=== PATIENT | female | born 1950 | race African-American/Black ===

== ENCOUNTER 2023-01-28 10:45 | Inpatient (IN) | payer OTHER, MEDICAID ==
[2023-01-28 12:07] LABS: Hemoglobin 8.4 g/dL (12.0-15.5); Mean Corpuscular HGB CONC 33.6 g/dL (32.0-36.0); Mean Corpuscular Hemoglobin 34.1 pg (27.0-33.0); Mean Corpuscular Volume 101.6 fl (81.6-98.3); Mean Platelet Volume 10.3 fl (7.4-10.4); Platelet Count 262 10x3/uL (150-450); RBC Distribution Width 18.6 % (11.5-14.5); Red Blood Cell (RBC) Count 2.46 10x6/uL (3.90-5.03); White Blood Cell (WBC) Count 2.5 10x3/uL (3.5-10.5)
[2023-01-28 12:23] LABS: ALT (SGPT) 18 U/L (8-55); AST (SGOT) 43 U/L (5-34); Albumin 2.3 g/dL (3.4-4.8); Alkaline Phosphatase 74 U/L (40-110); Anion Gap 19 mmol/L (10-20); BUN (Urea Nitrogen) 11 mg/dL (9.8-20.1); Bilirubin, Total 0.7 mg/dL (0.2-1.2); Calc. Creatinine Clearance 0 mL/min (70-130); Calcium 7.5 mg/dL (7.8-10.44); Carbon Dioxide 19 mmol/L (23-31); Chloride 106 mmol/L (98-107); Estimated GFR 87; Globulin 4.6 g/dL (2.4-3.5); Glucose 60 mg/dL (83-110); Potassium 3.8 mmol/L (3.5-5.1); Protein, Total 6.9 g/dL (5.8-8.1); Sodium 140 mmol/L (136-145)
[2023-01-28 12:37] LABS: MDiff Complete? YES
[2023-01-28 12:44] LABS: CKMB 6.6 ng/mL (0-6.6)
[2023-01-28] MEDS ORDERED: Aspirin Chewable 81 MG TAB ONE (12:59)
[2023-01-28 13:03] LABS: Bilirubin 1+ (Negative); Blood, Urine 10 (Negative); Clarity Cloudy (Clear); Glucose, Urine (Dipstick) Normal (Negative); Ketone, Urine 50 mg/dL (Negative); Leukocyte 500 (Negative); Nitrite Negative (Negative); Protein, Urine (Dipstick) 30 mg/dl (Neg-Trace)
[2023-01-28 13:06] LABS: Eosinophils 1 % (0-10)
[2023-01-28 13:07] LABS: Lymphocytes 53 % (21-51); Monocytes 6 % (0-10); Neutrophil 40 % (42-75); Platelet Adequacy Comment Appears Adequate
[2023-01-28 13:09] LABS: Anisocytosis SLIGHT = 6-15 cells (100X) (0-5/hpf); Macrocytosis SLIGHT = 6-15 cells (100X) (0-5/hpf)
[2023-01-28 13:14] LABS: CAUTI Indications for Culture Pelvic or flank pain; RBC/HPF None Seen HPF (0-3)
[2023-01-28 13:15] LABS: Bacteria/HPF 4+ HPF (None Seen)
[2023-01-28 13:18] LABS: Urine Culture Reflex Yes Yes
[2023-01-28] MEDS ORDERED: cefTRIAXone (ROCEPHIN) 1 GM VIAL ONE (13:36)
[2023-01-28] MEDS ORDERED: Ondansetron PF 4 MG/2 ML Vial IVP PRN (13:56)
[2023-01-28] MEDS ORDERED: Furosemide 40 MG/4 ML VIAL SLOW IVP SCH (14:15)
[2023-01-28 14:30] LABS: Iron 98 ug/dL (50-170); Iron Binding Capacity, Total 83 mcg/dL (265-497)
[2023-01-28 15:08] LABS: Troponin I 0.389 ng/mL (< 0.028)
[2023-01-28] MEDS ORDERED: Acetaminophen 325 MG TAB ONE (15:41)
[2023-01-28] MEDS: Acetaminophen 325 MG TAB PO PRN (15:43)
[2023-01-28 15:46] VITALS: BMI 48.4
[2023-01-28] MEDS ORDERED: Furosemide 40 MG/4 ML VIAL ONE (15:51)
[2023-01-28 20:30] LABS: Troponin I 0.419 ng/mL (< 0.028)
[2023-01-28] MEDS ORDERED: Heparin 25,000 units/D5W 500 ML IVPB SCH (21:00)
[2023-01-28] MEDS ORDERED: Heparin 10,000 UNITS/ 10 ML VIAL SLOW IVP SCH (21:00)
[2023-01-28 22:06] LABS: Creatinine, Urine 175.07 mg/dL (47-110)
[2023-01-28 22:29] LABS: Platelet Count 233 10x3/uL (150-450)
[2023-01-29 04:31] LABS: Mean Corpuscular Hemoglobin 34.9 pg (27.0-33.0); Mean Corpuscular Volume 102.6 fl (81.6-98.3); Mean Platelet Volume 9.6 fl (7.4-10.4); Platelet Count 222 10x3/uL (150-450); RBC Distribution Width 19.1 % (11.5-14.5); Red Blood Cell (RBC) Count 2.29 10x6/uL (3.90-5.03); White Blood Cell (WBC) Count 2.4 10x3/uL (3.5-10.5)
[2023-01-29 04:48] LABS: ALT (SGPT) 14 U/L (8-55); AST (SGOT) 38 U/L (5-34); Albumin 2.1 g/dL (3.4-4.8); Alkaline Phosphatase 74 U/L (40-110); Anion Gap 17 mmol/L (10-20); BUN (Urea Nitrogen) 11 mg/dL (9.8-20.1); Bilirubin, Total 0.5 mg/dL (0.2-1.2); Calc. Creatinine Clearance 146 mL/min (70-130); Calcium 7.4 mg/dL (7.8-10.44); Carbon Dioxide 20 mmol/L (23-31); Chloride 104 mmol/L (98-107); Estimated GFR 85; Globulin 4.4 g/dL (2.4-3.5); Glucose 69 mg/dL (83-110); Potassium 2.9 mmol/L (3.5-5.1); Protein, Total 6.5 g/dL (5.8-8.1); Sodium 138 mmol/L (136-145)
[2023-01-29 05:05] LABS: MDiff Complete? YES
[2023-01-29 05:10] LABS: Eosinophils 2 % (0-10); Lymphocytes 55 % (21-51); Monocytes 8 % (0-10); Neutrophil 35 % (42-75)
[2023-01-29 05:11] LABS: Platelet Adequacy Comment Appears Adequate; RBC Morph Comment Within Normal Limits
[2023-01-29] MEDS: Furosemide 40 MG/4 ML VIAL SLOW IVP SCH ×2 (07:15→16:24)
[2023-01-29] MEDS: Potassium Chloride 20 MEQ in Premix Bag 1 BAG IVPB SCH ×2 (08:40→12:13)
[2023-01-29 08:58] LABS: Thyroid Stimulating Hormone 7.8996 uIU/mL (0.35-4.94)
[2023-01-29 09:27] LABS: Free T4 (Free Thyroxine) 0.82 ng/dL (0.70-1.48)
[2023-01-29 13:00] LABS: Magnesium 1.3 mg/dL (1.6-2.6)
[2023-01-29] MEDS ORDERED: Carvedilol 6.25 MG TAB PO SCH (13:00)
[2023-01-29] MEDS ORDERED: cefTRIAXone\\ROCEPHIN 2 GM in Sodium Chloride 0.9% 100 ML IVPB SCH (14:00)
[2023-01-29] MEDS: Carvedilol 6.25 MG TAB PO SCH (16:24)
[2023-01-29] MEDS ORDERED: Magnesium 2 GM/50 ML(in water) 2 GM in Premix Bag 1 BAG IVPB SCH ×2 (21:30→23:00)
[2023-01-30] MEDS: Furosemide 40 MG/4 ML VIAL SLOW IVP SCH ×2 (05:34→15:25)
[2023-01-30 06:48] LABS: #Monocytes 0.2 10x3/uL (0.0-1.1); #Neutrophils 0.7 10x3/uL (1.5-8.4); %Eosinophils 1.5 % (0.0-6.0); %Lymphocytes 56.4 % (18.0-47.0); %Monocytes 7.8 % (0.0-10.0); %Neutrophils 33.8 % (40.0-75.0); Hemoglobin 7.7 g/dL (12.0-15.5); Mean Corpuscular Hemoglobin 33.8 pg (27.0-33.0); Mean Corpuscular Volume 102.2 fl (81.6-98.3); Mean Platelet Volume 9.3 fl (7.4-10.4); Platelet Count 188 10x3/uL (150-450); RBC Distribution Width 18.7 % (11.5-14.5); Red Blood Cell (RBC) Count 2.28 10x6/uL (3.90-5.03)
[2023-01-30 07:02] LABS: Anion Gap 14 mmol/L (10-20); BUN (Urea Nitrogen) 12 mg/dL (9.8-20.1); Calc. Creatinine Clearance 140 mL/min (70-130); Calcium 7.5 mg/dL (7.8-10.44); Carbon Dioxide 24 mmol/L (23-31); Chloride 105 mmol/L (98-107); Estimated GFR 81; Glucose 93 mg/dL (83-110); Potassium 3.4 mmol/L (3.5-5.1); Sodium 140 mmol/L (136-145)
[2023-01-30] MEDS ORDERED: Potassium Chloride 20 MEQ TAB PO SCH (09:15)
[2023-01-30] MEDS: Carvedilol 6.25 MG TAB PO SCH ×2 (09:41→17:30)
[2023-01-30 11:07] LABS: Magnesium 1.7 mg/dL (1.6-2.6)
[2023-01-30 11:52] LABS: Troponin I 0.298 ng/mL (< 0.028)
[2023-01-30] MEDS: Magnesium 2 GM/50 ML(in water) 2 GM in Premix Bag 1 BAG IVPB SCH ×2 (12:00→13:00)
[2023-01-30] MEDS ORDERED: Meropenem 1 GM in Sodium Chloride 0.9% 100 ML IVPB SCH ×2 (13:00→14:00)
[2023-01-30] MEDS: Acetaminophen 325 MG TAB PO PRN (20:34)
[2023-01-30] MEDS: Meropenem 1 GM in Sodium Chloride 0.9% 100 ML IVPB SCH (20:35)
[2023-01-30 21:02] LABS: Hemoglobin 8.3 g/dL (12.0-15.5); Platelet Count 241 10x3/uL (150-450)
[2023-01-31 00:34] LABS: Protein, Urine Less than 10 mg/dL (1-14)
[2023-01-31 01:00] LABS: Urine Total Volume 2300 mL (250-2400)
[2023-01-31] MEDS: Meropenem 1 GM in Sodium Chloride 0.9% 100 ML IVPB SCH ×3 (04:49→21:48)
[2023-01-31] MEDS: Furosemide 40 MG/4 ML VIAL SLOW IVP SCH ×2 (06:01→13:03)
[2023-01-31 08:00] LABS: Anion Gap 18 mmol/L (10-20); BUN (Urea Nitrogen) 14 mg/dL (9.8-20.1); Calc. Creatinine Clearance 138 mL/min (70-130); Calcium 7.8 mg/dL (7.8-10.44); Carbon Dioxide 20 mmol/L (23-31); Chloride 104 mmol/L (98-107); Estimated GFR 79; Glucose 84 mg/dL (83-110); Potassium 3.2 mmol/L (3.5-5.1); Sodium 139 mmol/L (136-145)
[2023-01-31 08:01] LABS: Hemoglobin 8.4 g/dL (12.0-15.5); MDiff Complete? YES; Mean Corpuscular HGB CONC 34.1 g/dL (32.0-36.0); Mean Corpuscular Hemoglobin 33.9 pg (27.0-33.0); Mean Corpuscular Volume 99.2 fl (81.6-98.3); Platelet Count 232 10x3/uL (150-450); RBC Distribution Width 18.7 % (11.5-14.5); Red Blood Cell (RBC) Count 2.48 10x6/uL (3.90-5.03); White Blood Cell (WBC) Count 2.5 10x3/uL (3.5-10.5)
[2023-01-31 08:03] LABS: CRP (Inflammatory) 5.64 mg/dL (= or < 0.5); Magnesium 1.9 mg/dL (1.6-2.6)
[2023-01-31 08:27] LABS: Phosphorus 2.1 mg/dL (2.3-4.7)
[2023-01-31] MEDS: Carvedilol 6.25 MG TAB PO SCH ×2 (08:45→17:00)
[2023-01-31] MEDS ORDERED: PHOS-NAK 1 PKT PACK PO SCH (08:45)
[2023-01-31] MEDS ORDERED: Potassium Chloride 20 MEQ TAB PO SCH (08:45)
[2023-01-31 09:00] LABS: Eosinophils 1 % (0-10)
[2023-01-31 09:01] LABS: Lymphocytes 47 % (21-51)
[2023-01-31 09:02] LABS: Band 2 % (5-11); Monocytes 5 % (0-10); Neutrophil 45 % (42-75)
[2023-01-31 09:03] LABS: Platelet Adequacy Comment Appears Adequate
[2023-01-31 09:04] LABS: Target Cells SLIGHT = 2-5 cells (100X) (0-1/hpf)
[2023-02-01] MEDS: Meropenem 1 GM in Sodium Chloride 0.9% 100 ML IVPB SCH ×3 (06:06→20:46)
[2023-02-01 07:37] LABS: Mean Corpuscular HGB CONC 33.9 g/dL (32.0-36.0); Mean Corpuscular Hemoglobin 34.2 pg (27.0-33.0); Mean Corpuscular Volume 100.9 fl (81.6-98.3); Mean Platelet Volume 10.2 fl (7.4-10.4); Platelet Count 213 10x3/uL (150-450); RBC Distribution Width 19.4 % (11.5-14.5); Red Blood Cell (RBC) Count 2.34 10x6/uL (3.90-5.03); White Blood Cell (WBC) Count 2.2 10x3/uL (3.5-10.5)
[2023-02-01 07:55] LABS: Anion Gap 12 mmol/L (10-20); BUN (Urea Nitrogen) 15 mg/dL (9.8-20.1); Calc. Creatinine Clearance 133 mL/min (70-130); Calcium 7.6 mg/dL (7.8-10.44); Carbon Dioxide 26 mmol/L (23-31); Chloride 104 mmol/L (98-107); Estimated GFR 76; Glucose 80 mg/dL (83-110); Potassium 3.9 mmol/L (3.5-5.1); Sodium 138 mmol/L (136-145)
[2023-02-01] MEDS: Carvedilol 6.25 MG TAB PO SCH ×2 (08:07→17:59)
[2023-02-01] MEDS: Furosemide 40 MG TAB PO SCH (08:08)
[2023-02-01 08:57] LABS: MDiff Complete? YES
[2023-02-01 09:02] LABS: Eosinophils 2 % (0-10); Monocytes 3 % (0-10); Reactive Lymphocytes 1 % (0-10)
[2023-02-01 09:14] LABS: Lymphocytes 54 % (21-51); Neutrophil 40 % (42-75)
[2023-02-01 09:15] LABS: Macrocytosis SLIGHT = 6-15 cells (100X) (0-5/hpf)
[2023-02-01 09:16] LABS: Platelet Adequacy Comment Appears Adequate
[2023-02-02] MEDS: Meropenem 1 GM in Sodium Chloride 0.9% 100 ML IVPB SCH ×3 (05:35→20:59)
[2023-02-02] MEDS: Carvedilol 6.25 MG TAB PO SCH ×2 (08:28→18:18)
[2023-02-02] MEDS: Furosemide 40 MG TAB PO SCH (08:28)
[2023-02-02 16:15] LABS: Magnesium 1.6 mg/dL (1.6-2.6); Phosphorus 3.6 mg/dL (2.3-4.7)
[2023-02-03 03:21] LABS: Hemoglobin 8.4 g/dL (12.0-15.5); Mean Corpuscular HGB CONC 33.9 g/dL (32.0-36.0); Mean Corpuscular Hemoglobin 34.3 pg (27.0-33.0); Mean Corpuscular Volume 101.2 fl (81.6-98.3); Mean Platelet Volume 10.1 fl (7.4-10.4); Platelet Count 185 10x3/uL (150-450); RBC Distribution Width 18.6 % (11.5-14.5); Red Blood Cell (RBC) Count 2.45 10x6/uL (3.90-5.03); White Blood Cell (WBC) Count 2.4 10x3/uL (3.5-10.5)
[2023-02-03 03:23] LABS: MDiff Complete? YES
[2023-02-03 03:43] LABS: Anion Gap 15 mmol/L (10-20); BUN (Urea Nitrogen) 20 mg/dL (9.8-20.1); Calc. Creatinine Clearance 142 mL/min (70-130); Carbon Dioxide 24 mmol/L (23-31); Chloride 101 mmol/L (98-107); Estimated GFR 82; Glucose 80 mg/dL (83-110); Potassium 3.3 mmol/L (3.5-5.1); Sodium 137 mmol/L (136-145)
[2023-02-03 04:26] LABS: Macrocytosis SLIGHT = 6-15 cells (100X) (0-5/hpf); Platelet Adequacy Comment Appears Adequate
[2023-02-03 04:29] LABS: Band 3 % (5-11); Eosinophils 1 % (0-10); Lymphocytes 55 % (21-51); Monocytes 7 % (0-10); Neutrophil 34 % (42-75)
[2023-02-03] MEDS ORDERED: Meropenem 1,000 MG in Sodium Chloride 0.9% 100 ML IVPB SCH (05:00)
[2023-02-03] MEDS: Furosemide 40 MG TAB PO SCH (08:18)
[2023-02-03] MEDS: Carvedilol 6.25 MG TAB PO SCH ×2 (08:18→17:16)
[2023-02-03] MEDS ORDERED: Potassium Chloride 20 MEQ TAB PO SCH (09:00)
[2023-02-03] MEDS: Meropenem 1 GM in Sodium Chloride 0.9% 100 ML IVPB SCH ×2 (14:55→20:47)
[2023-02-04 03:40] LABS: Hemoglobin 7.4 g/dL (12.0-15.5); Mean Corpuscular HGB CONC 34.1 g/dL (32.0-36.0); Mean Corpuscular Hemoglobin 34.4 pg (27.0-33.0); Mean Corpuscular Volume 100.9 fl (81.6-98.3); Mean Platelet Volume 10.1 fl (7.4-10.4); Platelet Count 158 10x3/uL (150-450); Red Blood Cell (RBC) Count 2.15 10x6/uL (3.90-5.03); White Blood Cell (WBC) Count 2.4 10x3/uL (3.5-10.5)
[2023-02-04 03:43] LABS: MDiff Complete? YES
[2023-02-04 03:47] LABS: Anion Gap 12 mmol/L (10-20); BUN (Urea Nitrogen) 24 mg/dL (9.8-20.1); Calc. Creatinine Clearance 152 mL/min (70-130); Calcium 7.8 mg/dL (7.8-10.44); Carbon Dioxide 26 mmol/L (23-31); Chloride 103 mmol/L (98-107); Estimated GFR 89; Glucose 90 mg/dL (83-110); Potassium 3.1 mmol/L (3.5-5.1); Sodium 138 mmol/L (136-145)
[2023-02-04 04:38] LABS: Macrocytosis SLIGHT = 6-15 cells (100X) (0-5/hpf); Platelet Adequacy Comment Appears Adequate
[2023-02-04 04:41] LABS: Band 2 % (5-11); Eosinophils 1 % (0-10); Lymphocytes 55 % (21-51); Monocytes 6 % (0-10); Neutrophil 36 % (42-75)
[2023-02-04] MEDS: Meropenem 1 GM in Sodium Chloride 0.9% 100 ML IVPB SCH ×3 (05:11→21:28)
[2023-02-04] MEDS: Carvedilol 6.25 MG TAB PO SCH ×2 (09:42→16:52)
[2023-02-04] MEDS: Furosemide 40 MG TAB PO SCH (09:42)
[2023-02-04] MEDS ORDERED: Potassium Chloride 20 MEQ TAB PO SCH ×2 (14:00→21:00)
[2023-02-05 04:09] LABS: Hemoglobin 7.6 g/dL (12.0-15.5); Mean Corpuscular HGB CONC 32.8 g/dL (32.0-36.0); Mean Corpuscular Hemoglobin 34.4 pg (27.0-33.0); Mean Platelet Volume 10.8 fl (7.4-10.4); Platelet Count 168 10x3/uL (150-450); RBC Distribution Width 19.6 % (11.5-14.5); Red Blood Cell (RBC) Count 2.21 10x6/uL (3.90-5.03); White Blood Cell (WBC) Count 3.6 10x3/uL (3.5-10.5)
[2023-02-05 04:12] LABS: MDiff Complete? YES
[2023-02-05 04:21] LABS: Anion Gap 20 mmol/L (10-20); BUN (Urea Nitrogen) 26 mg/dL (9.8-20.1); Calc. Creatinine Clearance 152 mL/min (70-130); Carbon Dioxide 19 mmol/L (23-31); Chloride 103 mmol/L (98-107); Estimated GFR 89; Glucose 69 mg/dL (83-110); Potassium 4.6 mmol/L (3.5-5.1); Sodium 137 mmol/L (136-145)
[2023-02-05 04:38] LABS: Platelet Adequacy Comment Appears Adequate
[2023-02-05 04:40] LABS: Hypochromia SLIGHT = 6-15 cells (100X) (0-5/hpf); Macrocytosis SLIGHT = 6-15 cells (100X) (0-5/hpf)
[2023-02-05 04:42] LABS: Band 2 % (5-11); Lymphocytes 52 % (21-51); Monocytes 11 % (0-10); Neutrophil 35 % (42-75)
[2023-02-05] MEDS: Meropenem 1 GM in Sodium Chloride 0.9% 100 ML IVPB SCH ×3 (06:12→21:00)
[2023-02-05] MEDS: Furosemide 40 MG TAB PO SCH (08:22)
[2023-02-05] MEDS: Carvedilol 6.25 MG TAB PO SCH ×2 (08:22→21:02)
[2023-02-05] MEDS ORDERED: Dextrose 50% Abboject 50 ML SYRINGE SLOW IVP SCH (09:07)
[2023-02-05 10:15] LABS: Iron 111 ug/dL (50-170); Iron Binding Capacity, Total 125 mcg/dL (265-497)
[2023-02-06] MEDS: Meropenem 1 GM in Sodium Chloride 0.9% 100 ML IVPB SCH ×3 (05:13→21:59)
[2023-02-06 05:27] LABS: Hemoglobin 8.1 g/dL (12.0-15.5); Mean Corpuscular HGB CONC 32.5 g/dL (32.0-36.0); Mean Corpuscular Volume 104.6 fl (81.6-98.3); Mean Platelet Volume 10.9 fl (7.4-10.4); Platelet Count 151 10x3/uL (150-450); RBC Distribution Width 19.6 % (11.5-14.5); Red Blood Cell (RBC) Count 2.38 10x6/uL (3.90-5.03); White Blood Cell (WBC) Count 3.1 10x3/uL (3.5-10.5)
[2023-02-06 05:38] LABS: Anion Gap 15 mmol/L (10-20); BUN (Urea Nitrogen) 26 mg/dL (9.8-20.1); Calc. Creatinine Clearance 163 mL/min (70-130); Calcium 8.2 mg/dL (7.8-10.44); Carbon Dioxide 23 mmol/L (23-31); Chloride 104 mmol/L (98-107); Estimated GFR 93; Glucose 76 mg/dL (83-110); Sodium 139 mmol/L (136-145)
[2023-02-06 06:02] LABS: MDiff Complete? YES
[2023-02-06 06:04] LABS: Hypochromia SLIGHT = 6-15 cells (100X) (0-5/hpf); Macrocytosis SLIGHT = 6-15 cells (100X) (0-5/hpf); Platelet Adequacy Comment Appears Adequate
[2023-02-06 06:06] LABS: Band 5 % (5-11); Eosinophils 2 % (0-10); Lymphocytes 54 % (21-51); Monocytes 11 % (0-10); Neutrophil 28 % (42-75)
[2023-02-06] MEDS: Carvedilol 6.25 MG TAB PO SCH ×2 (08:37→18:05)
[2023-02-06] MEDS: Furosemide 40 MG TAB PO SCH (08:38)
[2023-02-06] MEDS ORDERED: Magnesium 2 GM/50 ML(in water) 2 GM in Premix Bag 1 BAG IVPB SCH ×2 (09:00→13:30)
[2023-02-06 13:46] LABS: Magnesium 1.7 mg/dL (1.6-2.6)
[2023-02-06] MEDS: Potassium Chloride 20 MEQ TAB PO SCH ×4 (13:51→22:02)
[2023-02-07 04:33] LABS: Hemoglobin 7.4 g/dL (12.0-15.5); Mean Corpuscular Hemoglobin 33.3 pg (27.0-33.0); Mean Corpuscular Volume 100.9 fl (81.6-98.3); Mean Platelet Volume 10.8 fl (7.4-10.4); Platelet Count 156 10x3/uL (150-450); RBC Distribution Width 18.9 % (11.5-14.5); Red Blood Cell (RBC) Count 2.22 10x6/uL (3.90-5.03); White Blood Cell (WBC) Count 3.5 10x3/uL (3.5-10.5)
[2023-02-07 04:34] LABS: MDiff Complete? YES
[2023-02-07 04:42] LABS: Anion Gap 17 mmol/L (10-20); BUN (Urea Nitrogen) 24 mg/dL (9.8-20.1); Calc. Creatinine Clearance 166 mL/min (70-130); Calcium 8.1 mg/dL (7.8-10.44); Carbon Dioxide 21 mmol/L (23-31); Chloride 105 mmol/L (98-107); Estimated GFR 93; Glucose 82 mg/dL (83-110); Potassium 3.9 mmol/L (3.5-5.1); Sodium 139 mmol/L (136-145)
[2023-02-07] MEDS: Meropenem 1 GM in Sodium Chloride 0.9% 100 ML IVPB SCH ×3 (04:57→20:14)
[2023-02-07 06:28] LABS: Band 1 % (5-11); Eosinophils 2 % (0-10); Lymphocytes 46 % (21-51); Monocytes 16 % (0-10); Neutrophil 35 % (42-75)
[2023-02-07 06:32] LABS: Hypochromia SLIGHT = 6-15 cells (100X) (0-5/hpf); Macrocytosis SLIGHT = 6-15 cells (100X) (0-5/hpf); Platelet Adequacy Comment Appears Adequate; Schistocytes SLIGHT = 2-5 cells (100X) (0-1/hpf)
[2023-02-07] MEDS: Furosemide 40 MG TAB PO SCH (08:19)
[2023-02-07] MEDS: Carvedilol 6.25 MG TAB PO SCH ×2 (08:19→17:22)
[2023-02-08 04:02] LABS: Hemoglobin 6.9 g/dL (12.0-15.5); Mean Corpuscular HGB CONC 33.2 g/dL (32.0-36.0); Mean Corpuscular Hemoglobin 33.7 pg (27.0-33.0); Mean Corpuscular Volume 101.5 fl (81.6-98.3); Mean Platelet Volume 11.6 fl (7.4-10.4); Platelet Count 161 10x3/uL (150-450); RBC Distribution Width 19.5 % (11.5-14.5); Red Blood Cell (RBC) Count 2.05 10x6/uL (3.90-5.03); White Blood Cell (WBC) Count 3.3 10x3/uL (3.5-10.5)
[2023-02-08 04:10] LABS: MDiff Complete? YES
[2023-02-08] MEDS: Meropenem 1 GM in Sodium Chloride 0.9% 100 ML IVPB SCH ×3 (04:40→20:55)
[2023-02-08 05:41] LABS: Eosinophils 1 % (0-10); Lymphocytes 38 % (21-51); Monocytes 18 % (0-10); Neutrophil 41 % (42-75); Reactive Lymphocytes 2 % (0-10)
[2023-02-08 05:43] LABS: Anisocytosis SLIGHT = 6-15 cells (100X) (0-5/hpf); Hypochromia SLIGHT = 6-15 cells (100X) (0-5/hpf); Macrocytosis SLIGHT = 6-15 cells (100X) (0-5/hpf); Microcytosis SLIGHT = 6-15 cells (100X) (0-5/hpf)
[2023-02-08 05:44] LABS: Platelet Adequacy Comment Appears Decreased; Schistocytes SLIGHT = 2-5 cells (100X) (0-1/hpf)
[2023-02-08 06:04] LABS: Anion Gap 15 mmol/L (10-20); BUN (Urea Nitrogen) 23 mg/dL (9.8-20.1); Calc. Creatinine Clearance 150 mL/min (70-130); Calcium 7.9 mg/dL (7.8-10.44); Carbon Dioxide 21 mmol/L (23-31); Chloride 104 mmol/L (98-107); Estimated GFR 87; Glucose 77 mg/dL (83-110); Potassium 3.4 mmol/L (3.5-5.1); Sodium 137 mmol/L (136-145)
[2023-02-08] MEDS: Carvedilol 6.25 MG TAB PO SCH ×2 (08:41→17:09)
[2023-02-08] MEDS: Furosemide 40 MG TAB PO SCH (08:42)
[2023-02-08] MEDS ORDERED: Potassium Chloride 20 MEQ TAB PO SCH (09:00)
[2023-02-08 14:41] LABS: Anion Gap 14 mmol/L (10-20); BUN (Urea Nitrogen) 23 mg/dL (9.8-20.1); Calc. Creatinine Clearance 158 mL/min (70-130); Calcium 7.9 mg/dL (7.8-10.44); Carbon Dioxide 24 mmol/L (23-31); Chloride 103 mmol/L (98-107); Estimated GFR 92; Glucose 103 mg/dL (83-110); Magnesium 1.8 mg/dL (1.6-2.6); Potassium 3.9 mmol/L (3.5-5.1); Sodium 137 mmol/L (136-145)
[2023-02-08 15:14] LABS: Hemoglobin 8.1 g/dL (12.0-15.5); Mean Corpuscular HGB CONC 33.2 g/dL (32.0-36.0); Mean Corpuscular Hemoglobin 33.1 pg (27.0-33.0); Mean Corpuscular Volume 99.6 fl (81.6-98.3); Mean Platelet Volume 11.6 fl (7.4-10.4); Platelet Count 167 10x3/uL (150-450); RBC Distribution Width 20.7 % (11.5-14.5); Red Blood Cell (RBC) Count 2.45 10x6/uL (3.90-5.03); White Blood Cell (WBC) Count 3.4 10x3/uL (3.5-10.5)
[2023-02-08] MEDS ORDERED: Magnesium Sulfate/D5W 1 GM/100 ML BAG IVPB SCH (15:30)
[2023-02-08 15:56] LABS: Band 2 % (5-11); Eosinophils 1 % (0-10); Lymphocytes 33 % (21-51); Monocytes 17 % (0-10); Neutrophil 42 % (42-75); Reactive Lymphocytes 5 % (0-10)
[2023-02-08 15:58] LABS: Anisocytosis SLIGHT = 6-15 cells (100X) (0-5/hpf); Hypochromia SLIGHT = 6-15 cells (100X) (0-5/hpf); Macrocytosis SLIGHT = 6-15 cells (100X) (0-5/hpf)
[2023-02-08 15:59] LABS: Large Platelets SLIGHT (None Seen); Platelet Adequacy Comment Platelets Normal
[2023-02-08 16:00] LABS: MDiff Complete? YES
[2023-02-08] MEDS ORDERED: Magnesium 2 GM/50 ML(in water) 2 GM in Premix Bag 1 BAG IVPB SCH (16:00)
[2023-02-09] MEDS: Meropenem 1 GM in Sodium Chloride 0.9% 100 ML IVPB SCH ×3 (05:21→21:13)
[2023-02-09 06:44] LABS: Anion Gap 14 mmol/L (10-20); BUN (Urea Nitrogen) 20 mg/dL (9.8-20.1); Calc. Creatinine Clearance 173 mL/min (70-130); Calcium 8.2 mg/dL (7.8-10.44); Carbon Dioxide 23 mmol/L (23-31); Chloride 105 mmol/L (98-107); Estimated GFR 94; Glucose 75 mg/dL (83-110); Magnesium 2.1 mg/dL (1.6-2.6); Potassium 3.7 mmol/L (3.5-5.1); Sodium 138 mmol/L (136-145)
[2023-02-09 07:01] LABS: Hemoglobin 8.6 g/dL (12.0-15.5); Mean Corpuscular HGB CONC 32.5 g/dL (32.0-36.0); Mean Corpuscular Hemoglobin 32.6 pg (27.0-33.0); Mean Corpuscular Volume 100.4 fl (81.6-98.3); Platelet Count 146 10x3/uL (150-450); RBC Distribution Width 21.5 % (11.5-14.5); Red Blood Cell (RBC) Count 2.64 10x6/uL (3.90-5.03)
[2023-02-09 07:21] LABS: MDiff Complete? YES
[2023-02-09 08:28] LABS: Eosinophils 2 % (0-10); Lymphocytes 58 % (21-51); Monocytes 14 % (0-10); Neutrophil 26 % (42-75)
[2023-02-09 08:29] LABS: Platelet Adequacy Comment Appears Adequate; RBC Morph Comment Within Normal Limits
[2023-02-09] MEDS: Furosemide 40 MG TAB PO SCH (08:43)
[2023-02-09] MEDS: Carvedilol 6.25 MG TAB PO SCH ×2 (08:43→17:27)
[2023-02-10 07:38] LABS: Anion Gap 16 mmol/L (10-20); BUN (Urea Nitrogen) 19 mg/dL (9.8-20.1); Calc. Creatinine Clearance 182 mL/min (70-130); Carbon Dioxide 20 mmol/L (23-31); Chloride 107 mmol/L (98-107); Sodium 139 mmol/L (136-145)
[2023-02-10 07:39] LABS: Calcium 7.7 mg/dL (7.8-10.44); Estimated GFR 95; Glucose 79 mg/dL (83-110)
[2023-02-10 08:26] LABS: Hemoglobin 7.5 g/dL (12.0-15.5); Mean Corpuscular HGB CONC 34.1 g/dL (32.0-36.0); Mean Corpuscular Hemoglobin 33.6 pg (27.0-33.0); Mean Corpuscular Volume 98.7 fl (81.6-98.3); Mean Platelet Volume 11.9 fl (7.4-10.4); RBC Distribution Width 20.4 % (11.5-14.5); Red Blood Cell (RBC) Count 2.23 10x6/uL (3.90-5.03); White Blood Cell (WBC) Count 3.4 10x3/uL (3.5-10.5)
[2023-02-10 08:28] LABS: MDiff Complete? YES
[2023-02-10 08:29] LABS: Platelet Count 158 10x3/uL (150-450)
[2023-02-10 09:18] LABS: Lymphocytes 59 % (21-51); Monocytes 12 % (0-10); Neutrophil 29 % (42-75)
[2023-02-10 09:22] LABS: Anisocytosis SLIGHT = 6-15 cells (100X) (0-5/hpf); Hypochromia SLIGHT = 6-15 cells (100X) (0-5/hpf); Macrocytosis SLIGHT = 6-15 cells (100X) (0-5/hpf); Microcytosis SLIGHT = 6-15 cells (100X) (0-5/hpf); Platelet Adequacy Comment Appears Adequate
[2023-02-10] MEDS: Furosemide 40 MG TAB PO SCH (10:36)
[2023-02-10] MEDS: Carvedilol 6.25 MG TAB PO SCH ×2 (10:36→17:18)
[2023-02-11 05:59] LABS: Hemoglobin 8.9 g/dL (12.0-15.5); Mean Corpuscular HGB CONC 33.6 g/dL (32.0-36.0); Mean Corpuscular Hemoglobin 32.7 pg (27.0-33.0); Mean Corpuscular Volume 97.4 fl (81.6-98.3); Mean Platelet Volume 11.5 fl (7.4-10.4); Platelet Count 189 10x3/uL (150-450); RBC Distribution Width 19.6 % (11.5-14.5); Red Blood Cell (RBC) Count 2.72 10x6/uL (3.90-5.03); White Blood Cell (WBC) Count 3.2 10x3/uL (3.5-10.5)
[2023-02-11 06:09] LABS: Anion Gap 17 mmol/L (10-20); BUN (Urea Nitrogen) 19 mg/dL (9.8-20.1); Calc. Creatinine Clearance 176 mL/min (70-130); Calcium 8.3 mg/dL (7.8-10.44); Carbon Dioxide 21 mmol/L (23-31); Chloride 104 mmol/L (98-107); Estimated GFR 95; Glucose 82 mg/dL (83-110); Potassium 3.6 mmol/L (3.5-5.1); Sodium 138 mmol/L (136-145)
[2023-02-11 06:26] LABS: MDiff Complete? YES
[2023-02-11 06:32] LABS: Eosinophils 1 % (0-10); Lymphocytes 50 % (21-51); Monocytes 14 % (0-10); Neutrophil 35 % (42-75)
[2023-02-11 06:34] LABS: Anisocytosis SLIGHT = 6-15 cells (100X) (0-5/hpf); Hypochromia SLIGHT = 6-15 cells (100X) (0-5/hpf); Large Platelets SLIGHT (None Seen); Macrocytosis SLIGHT = 6-15 cells (100X) (0-5/hpf); Platelet Adequacy Comment Appears Adequate; Toxic Granulation SLIGHT
[2023-02-11] MEDS: Furosemide 40 MG TAB PO SCH (08:30)
[2023-02-11] MEDS: Carvedilol 6.25 MG TAB PO SCH ×2 (08:30→16:58)
[2023-02-12 05:00] LABS: Mean Corpuscular HGB CONC 33.2 g/dL (32.0-36.0); Mean Corpuscular Hemoglobin 32.9 pg (27.0-33.0); Mean Corpuscular Volume 99.2 fl (81.6-98.3); Mean Platelet Volume 11.5 fl (7.4-10.4); Platelet Count 171 10x3/uL (150-450); RBC Distribution Width 19.1 % (11.5-14.5); Red Blood Cell (RBC) Count 2.43 10x6/uL (3.90-5.03); White Blood Cell (WBC) Count 3.4 10x3/uL (3.5-10.5)
[2023-02-12 05:10] LABS: Anion Gap 14 mmol/L (10-20); BUN (Urea Nitrogen) 18 mg/dL (9.8-20.1); Calc. Creatinine Clearance 168 mL/min (70-130); Calcium 8.1 mg/dL (7.8-10.44); Carbon Dioxide 24 mmol/L (23-31); Chloride 104 mmol/L (98-107); Estimated GFR 93; Glucose 88 mg/dL (83-110); Potassium 3.5 mmol/L (3.5-5.1); Sodium 138 mmol/L (136-145)
[2023-02-12 05:20] LABS: MDiff Complete? YES
[2023-02-12 05:57] LABS: Band 2 % (5-11); Eosinophils 3 % (0-10); Lymphocytes 39 % (21-51); Monocytes 15 % (0-10); Neutrophil 41 % (42-75)
[2023-02-12 05:59] LABS: Anisocytosis SLIGHT = 6-15 cells (100X) (0-5/hpf); Hypochromia SLIGHT = 6-15 cells (100X) (0-5/hpf); Macrocytosis SLIGHT = 6-15 cells (100X) (0-5/hpf); Platelet Adequacy Comment Appears Adequate; Polychromasia SLIGHT = 2-3 cells (100X) (0-2/hpf)
[2023-02-12] MEDS: Carvedilol 6.25 MG TAB PO SCH (09:07)
[2023-02-12] MEDS: Furosemide 40 MG TAB PO SCH (09:09)
[2023-02-12 13:13] VITALS: BP 105/57; TEMP 97.9
== END 2023-02-12 15:05 | disposition home or self-care (01) | DRG 871 ==
LOC: CSHERS 10:45 → SUATTDRO 10:45 → CSHERHOLD 15:36 → CSHTELE 19:00
PROVIDERS: ADMIT Family Medicine; ATTEND Hospitalist
PROC: 3E03329 Introduction of Other Anti-infective into Peripheral Vein, Percutaneous Approach (ICD-10-PCS; 2023-01-28)
PROC: 02HV33Z Insertion of Infusion Device into Superior Vena Cava, Percutaneous Approach (ICD-10-PCS; principal; 2023-02-02)
PROC: B548ZZA Ultrasonography of Superior Vena Cava, Guidance (ICD-10-PCS; 2023-02-02)
PROC: 30233N1 Transfusion of Nonautologous Red Blood Cells into Peripheral Vein, Percutaneous Approach (ICD-10-PCS; 2023-02-08)
DX: A41.4 Sepsis due to anaerobes (principal); I21.A1 Myocardial infarction type 2; I50.33 Acute on chronic diastolic (congestive) heart failure; N39.0 Urinary tract infection, site not specified; Z68.42 Body mass index [BMI] 45.0-49.9, adult; Z16.12 Extended spectrum beta lactamase (ESBL) resistance; I47.20 Ventricular tachycardia, unspecified; M19.90 Unspecified osteoarthritis, unspecified site; E87.6 Hypokalemia; R80.9 Proteinuria, unspecified; K80.20 Calculus of gallbladder without cholecystitis without obstruction; N28.1 Cyst of kidney, acquired; I11.0 Hypertensive heart disease with heart failure; G47.33 Obstructive sleep apnea (adult) (pediatric); E83.42 Hypomagnesemia; E66.01 Morbid (severe) obesity due to excess calories; E83.39 Other disorders of phosphorus metabolism; R29.6 Repeated falls; M16.0 Bilateral primary osteoarthritis of hip; M17.12 Unilateral primary osteoarthritis, left knee; E03.8 Other specified hypothyroidism; Z79.899 Other long term (current) drug therapy; Z98.51 Tubal ligation status; Z80.9 Family history of malignant neoplasm, unspecified; Z82.49 Family history of ischemic heart disease and other diseases of the circulatory system; D63.8 Anemia in other chronic diseases classified elsewhere; Z74.01 Bed confinement status; A41.59 Other Gram-negative sepsis
CPT/HCPCS: 36415; 36416; 36430; 36569; 51701; 70450; 70551; 71045; 72141; 76705; 80048; 80053; 81001; 82550; 82553; 82570; 82728; 83540; 83550; 83735; 83880; 84100; 84156; 84439; 84443; 84481; 84484; 85025; 85046; 85730; 86140; 86850; 86900; 86901; 87077; 87086; 87186; 87324; 87449; 93005; 93010; 94760; 96365; 97139; C1751; J0696; J1644; J1650; J1940; J2185; J3475; J3480; J3490; J7999; P9016

== ENCOUNTER 2023-02-15 14:39 | Inpatient (IN) | payer OTHER ==
[2023-02-15] MEDS ORDERED: Dextrose 50% Abboject 50 ML SYRINGE ONE ×2 (14:59→23:42)
[2023-02-15 15:45] LABS: Hematocrit 26.1 % (34.9-44.5); Hemoglobin 8.3 g/dL (12.0-15.5); Mean Corpuscular HGB CONC 31.8 g/dL (32.0-36.0); Mean Corpuscular Hemoglobin 33.1 pg (27.0-33.0); Mean Platelet Volume 11.1 fl (7.4-10.4); Platelet Count 159 10x3/uL (150-450); RBC Distribution Width 18.6 % (11.5-14.5); Red Blood Cell (RBC) Count 2.51 10x6/uL (3.90-5.03); White Blood Cell (WBC) Count 5.5 10x3/uL (3.5-10.5)
[2023-02-15 15:57] LABS: Bilirubin Neg (Negative); Blood, Urine Negative (Negative); Clarity Clear (Clear); Glucose, Urine (Dipstick) Normal (Negative); Ketone, Urine Negative (Negative); Leukocyte 25 (Negative); Nitrite Negative (Negative); Protein, Urine (Dipstick) 15 mg/dl (Neg-Trace); Urobilinogen Normal mg/dL (Less than 2)
[2023-02-15 16:05] LABS: ALT (SGPT) 9 U/L (8-55); AST (SGOT) 16 U/L (5-34); Albumin 1.9 g/dL (3.4-4.8); Alkaline Phosphatase 36 U/L (40-110); Anion Gap 13 mmol/L (10-20); BUN (Urea Nitrogen) 16 mg/dL (9.8-20.1); Bilirubin, Total 0.7 mg/dL (0.2-1.2); CK (CPK) 85 U/L (29-168); Calc. Creatinine Clearance 0 mL/min (70-130); Carbon Dioxide 20 mmol/L (23-31); Chloride 110 mmol/L (98-107); Estimated GFR 72; Globulin 3.3 g/dL (2.4-3.5); Glucose 125 mg/dL (83-110); Protein, Total 5.2 g/dL (5.8-8.1); Sodium 140 mmol/L (136-145)
[2023-02-15 16:18] LABS: Bacteria/HPF None Seen HPF (None Seen); CAUTI Indications for Culture Alt mental st,lethar; RBC/HPF None Seen HPF (0-3); Squamous Epithelial None Seen HPF (0-3); Urine Culture Reflex No No; WBC/HPF 0-3 HPF (0-3)
[2023-02-15 16:20] LABS: MDiff Complete? YES
[2023-02-15] MEDS ORDERED: cefTRIAXone (ROCEPHIN) 1 GM VIAL ONE (16:22)
[2023-02-15 16:23] LABS: Calcium 6.9 mg/dL (7.8-10.44)
[2023-02-15 16:30] LABS: Band 6 % (5-11); Lymphocytes 20 % (21-51); Metamyelocyte 3 % (0-0); Monocytes 4 % (0-10); Neutrophil 67 % (42-75); Platelet Adequacy Comment Appears Adequate; RBC Morph Comment Within Normal Limits
[2023-02-15] MEDS ORDERED: Calcium Chloride 13.6 MEQ in Sodium Chloride 0.9% 100 ML IVPB SCH (16:45)
[2023-02-15 16:50] LABS: CKMB 0.9 ng/mL (0-6.6)
[2023-02-15] MEDS ORDERED: NOREPINEPHRINE 8 MG/250 ML-D5W 250 ML ONE (18:06)
[2023-02-15] MEDS ORDERED: Potassium Chloride 20 MEQ TAB PO SCH (19:15)
[2023-02-15 19:29] LABS: Magnesium 1.4 mg/dL (1.6-2.6); Phosphorus 2.5 mg/dL (2.3-4.7)
[2023-02-15 19:40] LABS: Actual Bicarbonate (HCO3v) 21.3 mEq/L (22-28); Base Excess -4.5 mEq/L (-2 - +2); Calcium, Ionized (venous) 1.14 mmol/L (1.16-1.32); Chloride (VBG) 110 mmol/L (98-106); Hematocrit-VBG 27 % (36.0-47.0); Hemoglobin (Hb) 9.1 g/dL (11.7-16.1); Potassium (VBG) 3.06 mmol/L (3.70-5.30); Puncture Site Other Site; RapidComm Collect By CBN; Sodium 138.6 mmol/L (133-146); pH (venous) 7.322 (7.32-7.43)
[2023-02-15] MEDS ORDERED: Potassium Chloride 20 MEQ TAB ONE (19:44)
[2023-02-15 19:50] LABS: Troponin I 0.115 ng/mL (< 0.028)
[2023-02-15] MEDS ORDERED: Sodium Chloride 0.9% 1,000 ML IV SCH ×2 (22:00→23:45)
[2023-02-15 22:03] LABS: INR-International Normal Ratio 1.4; PTT 33.6 sec (22.0-33.0); Prothrombin Time 14.5 sec (9.5-12.1)
[2023-02-15] MEDS: metroNIDAZOLE 500 MG in Premix Bag 1 BAG IVPB SCH (22:20)
[2023-02-15] MEDS: Vancomycin HCl 125 MG Capsule PO SCH (22:20)
[2023-02-15] MEDS ORDERED: Dextrose 50% Abboject 50 ML SYRINGE SLOW IVP PRN (23:41)
[2023-02-15] MEDS ORDERED: Glucagon 1 MG/ML KIT IM PRN (23:41)
[2023-02-15] MEDS ORDERED: Dextrose 5% in Water 1,000 ML IV PRN (23:41)
[2023-02-16] MEDS: Albumin 25% 25 GM/100 ML BOT IVPB SCH ×4 (00:21→17:55)
[2023-02-16] MEDS ORDERED: NOREPINEPHRINE 8 MG/250 ML-D5W 250 ML ONE (00:58)
[2023-02-16] MEDS: NOREPINEPHRINE 8 MG/250 ML-D5W 250 ML IVPB SCH ×4 (01:06→22:18)
[2023-02-16] MEDS ORDERED: Atorvastatin Calcium 40 MG TAB PO SCH (03:00)
[2023-02-16] MEDS: Vancomycin HCl 125 MG Capsule PO SCH ×4 (03:38→21:39)
[2023-02-16 04:08] LABS: Hematocrit 25.1 % (34.9-44.5); Hemoglobin 8.1 g/dL (12.0-15.5); Mean Corpuscular HGB CONC 32.3 g/dL (32.0-36.0); Mean Corpuscular Hemoglobin 32.5 pg (27.0-33.0); Mean Corpuscular Volume 100.8 fl (81.6-98.3); Mean Platelet Volume 11.2 fl (7.4-10.4); Platelet Count 181 10x3/uL (150-450); RBC Distribution Width 18.6 % (11.5-14.5); Red Blood Cell (RBC) Count 2.49 10x6/uL (3.90-5.03); White Blood Cell (WBC) Count 11.9 10x3/uL (3.5-10.5)
[2023-02-16] MEDS ORDERED: Sodium Chloride 0.9% 1,000 ML IV SCH ×3 (04:15→15:00)
[2023-02-16 04:24] LABS: ALT (SGPT) 8 U/L (8-55); AST (SGOT) 19 U/L (5-34); Albumin 2.4 g/dL (3.4-4.8); Alkaline Phosphatase 35 U/L (40-110); Anion Gap 16 mmol/L (10-20); BUN (Urea Nitrogen) 18 mg/dL (9.8-20.1); Bilirubin, Total 0.6 mg/dL (0.2-1.2); Calc. Creatinine Clearance 92 mL/min (70-130); Carbon Dioxide 18 mmol/L (23-31); Chloride 111 mmol/L (98-107); Estimated GFR 48; Globulin 3.7 g/dL (2.4-3.5); Glucose 126 mg/dL (83-110); Potassium 3.6 mmol/L (3.5-5.1); Protein, Total 6.1 g/dL (5.8-8.1); Sodium 141 mmol/L (136-145)
[2023-02-16 04:49] LABS: MDiff Complete? YES
[2023-02-16 04:52] LABS: Band 30 % (5-11); Lymphocytes 11 % (21-51); Monocytes 16 % (0-10); Neutrophil 43 % (42-75)
[2023-02-16 04:54] LABS: Hypochromia SLIGHT = 6-15 cells (100X) (0-5/hpf); Macrocytosis SLIGHT = 6-15 cells (100X) (0-5/hpf); Platelet Adequacy Comment Appears Adequate
[2023-02-16] MEDS: metroNIDAZOLE 500 MG in Premix Bag 1 BAG IVPB SCH ×3 (05:30→21:00)
[2023-02-16] MEDS: Levothyroxine Sodium 50 MCG TAB PO SCH (06:00)
[2023-02-16 06:49] LABS: Creatinine, Urine 141.09 mg/dL (47-110)
[2023-02-16] MEDS: Cyanocobalamin (Vitamin B-12) 1,000 MCG TAB PO SCH (09:13)
[2023-02-16] MEDS: Heparin 5,000 UNITS/ML VIAL SC SCH ×3 (09:13→20:59)
[2023-02-16] MEDS: Folic Acid 1 MG TAB PO SCH (09:13)
[2023-02-16] MEDS: Famotidine/PF 20 mg/2ml Vial SLOW IVP SCH ×2 (09:13→20:59)
[2023-02-16] MEDS: Aspirin 81 mg Enteric Coated Tablet PO SCH (09:13)
[2023-02-16 09:25] LABS: Amphetamine Not Detected (NotDetected); Barbiturates Screen Not Detected (NotDetected); Benzodiazepine Screen Not Detected (NotDetected); Cocaine Metabolite Screen Not Detected (NotDetected); Methadone Not Detected (NotDetected); Methamphetamine Not Detected (NotDetected); Opiate Screen Not Detected (NotDetected); Oxycodone Screen Not Detected (NotDetected); Phencyclidine (PCP) Not Detected (NotDetected); THC/Cannabinoid Screen Not Detected (NotDetected); Tricyclic Screen Not Detected (NotDetected)
[2023-02-16 13:48] LABS: Sodium, Urine 77 mmol/L (Not Available); Urea Nitrogen, Random Urine Less than 40 mg/dl
[2023-02-16] MEDS: Vasopressin 20 UNITS, Admixture Fee 1 EACH in Sodium Chloride 0.9% 50 ML IV SCH ×2 (16:17→21:36)
[2023-02-16] MEDS: Atorvastatin Calcium 40 MG TAB PO SCH (20:59)
[2023-02-17 03:02] LABS: Campy jejuni + coli by PCR Negative (Negative); STEC Shiga Toxin 1+2 Negative (Negative); Salmonella spp. by PCR Negative (Negative); Shigella spp + EIEC by PCR Negative (Negative)
[2023-02-17 03:41] LABS: Anion Gap 15 mmol/L (10-20); BUN (Urea Nitrogen) 22 mg/dL (9.8-20.1); Calc. Creatinine Clearance 79 mL/min (70-130); Calcium 7.8 mg/dL (7.8-10.44); Carbon Dioxide 17 mmol/L (23-31); Chloride 111 mmol/L (98-107); Estimated GFR 40; Glucose 115 mg/dL (83-110); Potassium 3.3 mmol/L (3.5-5.1); Sodium 140 mmol/L (136-145)
[2023-02-17] MEDS ORDERED: Electrolyte Replacement Protocol FS SCH (03:49)
[2023-02-17] MEDS ORDERED: Potassium Chloride 20 MEQ in Premix Bag 1 BAG IVPB SCH (04:00)
[2023-02-17] MEDS: Vancomycin HCl 125 MG Capsule PO SCH ×2 (04:01→05:44)
[2023-02-17] MEDS: Magnesium 2 GM/50 ML(in water) 2 GM in Premix Bag 1 BAG IVPB SCH ×2 (05:12→06:26)
[2023-02-17] MEDS: metroNIDAZOLE 500 MG in Premix Bag 1 BAG IVPB SCH ×3 (05:25→21:41)
[2023-02-17] MEDS: Vasopressin 20 UNITS, Admixture Fee 1 EACH in Sodium Chloride 0.9% 50 ML IV SCH ×3 (05:25→23:24)
[2023-02-17] MEDS: Levothyroxine Sodium 50 MCG TAB PO SCH (05:45)
[2023-02-17] MEDS: Acetaminophen 325 MG TAB PO PRN (07:49)
[2023-02-17] MEDS: Heparin 5,000 UNITS/ML VIAL SC SCH ×3 (07:49→20:45)
[2023-02-17] MEDS: Cyanocobalamin (Vitamin B-12) 1,000 MCG TAB PO SCH ×3 (07:49→10:48)
[2023-02-17] MEDS: Famotidine/PF 20 mg/2ml Vial SLOW IVP SCH ×2 (07:49→20:45)
[2023-02-17] MEDS: Aspirin 81 mg Enteric Coated Tablet PO SCH ×3 (07:50→10:48)
[2023-02-17] MEDS: Folic Acid 1 MG TAB PO SCH ×3 (07:50→10:48)
[2023-02-17] MEDS: Sodium Bicarbonate 70 MEQ in Sodium Chloride 0.45% 1,000 ML IV SCH ×2 (07:53→22:48)
[2023-02-17] MEDS: NOREPINEPHRINE 8 MG/250 ML-D5W 250 ML IVPB SCH (09:45)
[2023-02-17] MEDS ORDERED: Vancomycin HCl 125 MG Capsule PO SCH (10:00)
[2023-02-17] MEDS: Vancomycin HCl 125 MG/5 ML (BATCHED) UDCUP PO SCH ×3 (11:59→23:24)
[2023-02-17 12:13] LABS: Cholesterol 73 mg/dl (< 200 Desired); HDL Cholesterol Less than 8 mg/dL (>60 Neg Risk); Triglycerides 249 mg/dL (Less than 150)
[2023-02-17] MEDS: Atorvastatin Calcium 40 MG TAB PO SCH (20:45)
[2023-02-18] MEDS: NOREPINEPHRINE 8 MG/250 ML-D5W 250 ML IVPB SCH (01:56)
[2023-02-18] MEDS ORDERED: NOREPINEPHRINE 8 MG/250 ML-D5W 250 ML ONE (01:58)
[2023-02-18 03:53] LABS: Anion Gap 18 mmol/L (10-20); BUN (Urea Nitrogen) 28 mg/dL (9.8-20.1); Calc. Creatinine Clearance 79 mL/min (70-130); Calcium 8.3 mg/dL (7.8-10.44); Carbon Dioxide 15 mmol/L (23-31); Chloride 111 mmol/L (98-107); Cholesterol 78 mg/dl (< 200 Desired); Estimated GFR 37; Glucose 94 mg/dL (83-110); HDL Cholesterol Less than 8 mg/dL (>60 Neg Risk); Potassium 3.8 mmol/L (3.5-5.1); Sodium 140 mmol/L (136-145); Triglycerides 325 mg/dL (Less than 150)
[2023-02-18 03:58] LABS: Phosphorus 1.3 mg/dL (2.3-4.7)
[2023-02-18 04:03] LABS: Hematocrit 24.2 % (34.9-44.5); Hemoglobin 7.6 g/dL (12.0-15.5); Mean Corpuscular HGB CONC 31.4 g/dL (32.0-36.0); Mean Corpuscular Hemoglobin 31.9 pg (27.0-33.0); Mean Corpuscular Volume 101.7 fl (81.6-98.3); Platelet Count 115 10x3/uL (150-450); Red Blood Cell (RBC) Count 2.38 10x6/uL (3.90-5.03); White Blood Cell (WBC) Count 5.9 10x3/uL (3.5-10.5)
[2023-02-18 04:04] LABS: MDiff Complete? YES
[2023-02-18] MEDS: metroNIDAZOLE 500 MG in Premix Bag 1 BAG IVPB SCH ×3 (05:01→21:20)
[2023-02-18] MEDS: Levothyroxine Sodium 50 MCG TAB PO SCH (05:02)
[2023-02-18] MEDS: Vancomycin HCl 125 MG/5 ML (BATCHED) UDCUP PO SCH ×3 (05:02→17:35)
[2023-02-18] MEDS: PHOS-NAK 1 PKT PACK PER TUBE SCH ×4 (05:02→17:35)
[2023-02-18 05:32] LABS: Band 2 % (5-11); Lymphocytes 17 % (21-51); Monocytes 18 % (0-10); Neutrophil 61 % (42-75); Reactive Lymphocytes 2 % (0-10)
[2023-02-18 05:36] LABS: Anisocytosis SLIGHT = 6-15 cells (100X) (0-5/hpf); Hypochromia SLIGHT = 6-15 cells (100X) (0-5/hpf); Macrocytosis SLIGHT = 6-15 cells (100X) (0-5/hpf); Microcytosis SLIGHT = 6-15 cells (100X) (0-5/hpf); Schistocytes SLIGHT = 2-5 cells (100X) (0-1/hpf)
[2023-02-18 05:37] LABS: Platelet Adequacy Comment Appears Decreased
[2023-02-18] MEDS ORDERED: Magnesium 2 GM/50 ML(in water) 2 GM in Premix Bag 1 BAG IVPB SCH (08:00)
[2023-02-18] MEDS: Cyanocobalamin (Vitamin B-12) 1,000 MCG TAB PO SCH (08:58)
[2023-02-18] MEDS: Aspirin 81 mg Enteric Coated Tablet PO SCH (08:58)
[2023-02-18] MEDS: Acetaminophen 325 MG TAB PO PRN (08:58)
[2023-02-18] MEDS: Folic Acid 1 MG TAB PO SCH (08:58)
[2023-02-18] MEDS ORDERED: Famotidine/PF 20 mg/2ml Vial SLOW IVP SCH (09:00)
[2023-02-18] MEDS: Heparin 5,000 UNITS/ML VIAL SC SCH ×3 (09:22→21:20)
[2023-02-18 09:27] LABS: ALV-art Gradient 44.055 mmHg (0-20); Actual Bicarbonate (HCO3a) 16.7 mEq/L (22-28); Base Excess (BEa) -7.4 mEq/L (-2.0 to +3.0); CO2 Tension 28.3 mmHg (35.0-45.0); Calcium, Ionized (arterial) 1.15 mmol/L (1.12-1.30); Carboxyhemoglobin (COHb) 0.3 gm% (0.0-3.0); Hematocrit-ABG 23 % (36.0-47.0); Hemoglobin (Hb) 7.7 g/dL (12.0-16.0); O2 Tension (PaO2), arterial 70.3 mmHg (> 70.0); Potassium - ABG Lab 3.02 mmol/L (3.70-5.30); Puncture Site RRA; pH, Arterial 7.389 (7.35-7.45)
[2023-02-18 09:59] LABS: Lactic Acid 4.1 mmol/L (0.5-2.2)
[2023-02-18] MEDS: Hydrocortisone Sod Succ/PF 100 mg/2 ml Vial IVP SCH ×3 (10:07→21:18)
[2023-02-18] MEDS ORDERED: Sodium Chloride 0.9% 500 ML IVPB SCH (12:00)
[2023-02-18] MEDS: Sodium Bicarbonate 70 MEQ in Sodium Chloride 0.45% 1,000 ML IV SCH ×2 (12:06→22:25)
[2023-02-18] MEDS: Atorvastatin Calcium 40 MG TAB PO SCH (21:18)
[2023-02-19] MEDS: Vancomycin HCl 125 MG/5 ML (BATCHED) UDCUP PO SCH ×5 (00:34→23:12)
[2023-02-19] MEDS: Hydrocortisone Sod Succ/PF 100 mg/2 ml Vial IVP SCH ×4 (04:45→22:42)
[2023-02-19 05:06] LABS: Hematocrit 24.1 % (34.9-44.5); Hemoglobin 7.9 g/dL (12.0-15.5); Mean Corpuscular HGB CONC 32.8 g/dL (32.0-36.0); Mean Corpuscular Hemoglobin 31.9 pg (27.0-33.0); Mean Corpuscular Volume 97.2 fl (81.6-98.3); Mean Platelet Volume 11.9 fl (7.4-10.4); Platelet Count 89 10x3/uL (150-450); RBC Distribution Width 20.3 % (11.5-14.5); Red Blood Cell (RBC) Count 2.48 10x6/uL (3.90-5.03); White Blood Cell (WBC) Count 4.4 10x3/uL (3.5-10.5)
[2023-02-19 05:07] LABS: MDiff Complete? YES
[2023-02-19 05:14] LABS: ALT (SGPT) 7 U/L (8-55); AST (SGOT) 15 U/L (5-34); Albumin 2.3 g/dL (3.4-4.8); Alkaline Phosphatase 135 U/L (40-110); Anion Gap 16 mmol/L (10-20); BUN (Urea Nitrogen) 32 mg/dL (9.8-20.1); Bilirubin, Total 1.1 mg/dL (0.2-1.2); Calc. Creatinine Clearance 85 mL/min (70-130); Calcium 7.9 mg/dL (7.8-10.44); Carbon Dioxide 18 mmol/L (23-31); Chloride 110 mmol/L (98-107); Estimated GFR 41; Globulin 3.5 g/dL (2.4-3.5); Glucose 122 mg/dL (83-110); Magnesium 2.1 mg/dL (1.6-2.6); Potassium 3.1 mmol/L (3.5-5.1); Protein, Total 5.8 g/dL (5.8-8.1); Sodium 141 mmol/L (136-145)
[2023-02-19 05:16] LABS: Phosphorus 1.1 mg/dL (2.3-4.7)
[2023-02-19] MEDS: Levothyroxine Sodium 50 MCG TAB PO SCH (05:30)
[2023-02-19] MEDS: metroNIDAZOLE 500 MG in Premix Bag 1 BAG IVPB SCH ×3 (05:30→21:28)
[2023-02-19] MEDS ORDERED: Potassium Phosphate 22 MMOL in Sodium Chloride 0.9% 250 ML 250 ML IVPB SCH (06:00)
[2023-02-19 06:11] LABS: Lymphocytes 27 % (21-51); Monocytes 18 % (0-10); Neutrophil 55 % (42-75); Nucleated RBC (Manual Ct) 1 % (0)
[2023-02-19 06:43] LABS: Anisocytosis SLIGHT = 6-15 cells (100X) (0-5/hpf); Hypochromia SLIGHT = 6-15 cells (100X) (0-5/hpf); Macrocytosis SLIGHT = 6-15 cells (100X) (0-5/hpf); Microcytosis SLIGHT = 6-15 cells (100X) (0-5/hpf); Schistocytes SLIGHT = 2-5 cells (100X) (0-1/hpf)
[2023-02-19 06:44] LABS: Platelet Adequacy Comment Appears Decreased
[2023-02-19] MEDS: Heparin 5,000 UNITS/ML VIAL SC SCH ×3 (08:42→21:20)
[2023-02-19] MEDS: Cyanocobalamin (Vitamin B-12) 1,000 MCG TAB PO SCH (08:44)
[2023-02-19] MEDS: Aspirin 81 mg Enteric Coated Tablet PO SCH (08:44)
[2023-02-19] MEDS: Folic Acid 1 MG TAB PO SCH (08:44)
[2023-02-19] MEDS: Famotidine/PF 20 mg/2ml Vial SLOW IVP SCH ×2 (08:44→21:28)
[2023-02-19 11:22] LABS: Lactic Acid 3.1 mmol/L (0.5-2.2)
[2023-02-19] MEDS: Atorvastatin Calcium 40 MG TAB PO SCH (21:29)
[2023-02-20] MEDS: Hydrocortisone Sod Succ/PF 100 mg/2 ml Vial IVP SCH ×4 (03:29→21:38)
[2023-02-20] MEDS: metroNIDAZOLE 500 MG in Premix Bag 1 BAG IVPB SCH ×3 (05:00→21:18)
[2023-02-20] MEDS: Vancomycin HCl 125 MG/5 ML (BATCHED) UDCUP PO SCH ×3 (05:01→18:25)
[2023-02-20] MEDS: Levothyroxine Sodium 50 MCG TAB PO SCH (05:01)
[2023-02-20 05:44] LABS: ALT (SGPT) 8 U/L (8-55); AST (SGOT) 19 U/L (5-34); Albumin 2.2 g/dL (3.4-4.8); Alkaline Phosphatase 235 U/L (40-110); Anion Gap 16 mmol/L (10-20); BUN (Urea Nitrogen) 35 mg/dL (9.8-20.1); Bilirubin, Total 0.7 mg/dL (0.2-1.2); Calc. Creatinine Clearance 85 mL/min (70-130); Calcium 7.7 mg/dL (7.8-10.44); Carbon Dioxide 19 mmol/L (23-31); Chloride 110 mmol/L (98-107); Estimated GFR 41; Globulin 3.6 g/dL (2.4-3.5); Glucose 96 mg/dL (83-110); Magnesium 2.2 mg/dL (1.6-2.6); Phosphorus 1.7 mg/dL (2.3-4.7); Potassium 3.1 mmol/L (3.5-5.1); Protein, Total 5.8 g/dL (5.8-8.1); Sodium 142 mmol/L (136-145)
[2023-02-20] MEDS ORDERED: Potassium Chloride 20 MEQ in Premix Bag 1 BAG IVPB SCH (06:00)
[2023-02-20 06:01] LABS: Hematocrit 23.1 % (34.9-44.5); Hemoglobin 7.7 g/dL (12.0-15.5); MDiff Complete? YES; Mean Corpuscular HGB CONC 33.3 g/dL (32.0-36.0); Mean Corpuscular Volume 95.9 fl (81.6-98.3); Mean Platelet Volume 12.7 fl (7.4-10.4); Platelet Count 70 10x3/uL (150-450); RBC Distribution Width 19.5 % (11.5-14.5); Red Blood Cell (RBC) Count 2.41 10x6/uL (3.90-5.03)
[2023-02-20 07:49] LABS: Lymphocytes 27 % (21-51); Monocytes 12 % (0-10); Neutrophil 58 % (42-75); Reactive Lymphocytes 3 % (0-10)
[2023-02-20 07:51] LABS: Hypochromia SLIGHT = 6-15 cells (100X) (0-5/hpf); Large Platelets SLIGHT (None Seen); Platelet Adequacy Comment Platelets Decreased
[2023-02-20] MEDS ORDERED: Potassium Phosphate 15 MMOL in Sodium Chloride 0.9% 100 ML IVPB SCH (08:00)
[2023-02-20] MEDS: Heparin 5,000 UNITS/ML VIAL SC SCH ×3 (08:30→20:04)
[2023-02-20] MEDS: Famotidine/PF 20 mg/2ml Vial SLOW IVP SCH ×2 (08:30→20:04)
[2023-02-20] MEDS: Aspirin 81 mg Enteric Coated Tablet PO SCH (08:35)
[2023-02-20] MEDS: Cyanocobalamin (Vitamin B-12) 1,000 MCG TAB PO SCH (08:36)
[2023-02-20] MEDS: Folic Acid 1 MG TAB PO SCH (08:36)
[2023-02-20] MEDS: Atorvastatin Calcium 40 MG TAB PO SCH (20:04)
[2023-02-20 20:27] LABS: Hemoglobin 7.6 g/dL (12.0-15.5); MDiff Complete? YES; Mean Corpuscular Hemoglobin 31.4 pg (27.0-33.0); Mean Platelet Volume 13.7 fl (7.4-10.4); Platelet Count 72 10x3/uL (150-450); RBC Distribution Width 19.5 % (11.5-14.5); Red Blood Cell (RBC) Count 2.42 10x6/uL (3.90-5.03); White Blood Cell (WBC) Count 6.5 10x3/uL (3.5-10.5)
[2023-02-20 20:35] LABS: Anion Gap 16 mmol/L (10-20); BUN (Urea Nitrogen) 39 mg/dL (9.8-20.1); Calc. Creatinine Clearance 87 mL/min (70-130); Calcium 7.8 mg/dL (7.8-10.44); Carbon Dioxide 18 mmol/L (23-31); Chloride 111 mmol/L (98-107); Estimated GFR 42; Glucose 108 mg/dL (83-110); Magnesium 2.2 mg/dL (1.6-2.6); Phosphorus 2.2 mg/dL (2.3-4.7); Potassium 3.4 mmol/L (3.5-5.1); Sodium 142 mmol/L (136-145)
[2023-02-20] MEDS ORDERED: Potassium Phosphate 30 MMOL in Sodium Chloride 0.9% 250 ML 250 ML IVPB SCH (21:00)
[2023-02-20] MEDS ORDERED: Lactated Ringer's 500 ML IV SCH (21:15)
[2023-02-20 21:16] LABS: Band 8 % (5-11); Lymphocytes 21 % (21-51); Monocytes 19 % (0-10); Neutrophil 52 % (42-75)
[2023-02-20 21:17] LABS: Hypochromia SLIGHT = 6-15 cells (100X) (0-5/hpf); Platelet Adequacy Comment Appears Decreased
[2023-02-20] MEDS ORDERED: VASOPRESSIN IV SCH (21:30)
[2023-02-20] MEDS ORDERED: SODIUM CHLORIDE IV SCH (21:30)
[2023-02-20] MEDS ORDERED: NOREPINEPHRINE IVPB SCH (21:30)
[2023-02-20] MEDS ORDERED: SODIUM CHLORIDE 0.45% IVPB SCH ×2 (21:30)
[2023-02-20] MEDS ORDERED: POTASSIUM PHOSPHATE IVPB SCH (21:30)
[2023-02-20] MEDS ORDERED: ADMIXTURE FEE IV SCH (21:30)
[2023-02-21] MEDS: Vancomycin HCl 125 MG/5 ML (BATCHED) UDCUP PO SCH ×4 (00:11→17:00)
[2023-02-21] MEDS: Hydrocortisone Sod Succ/PF 100 mg/2 ml Vial IVP SCH ×4 (03:51→21:40)
[2023-02-21] MEDS: metroNIDAZOLE 500 MG in Premix Bag 1 BAG IVPB SCH ×3 (05:37→21:40)
[2023-02-21] MEDS: Levothyroxine Sodium 50 MCG TAB PO SCH (06:45)
[2023-02-21] MEDS: Folic Acid 1 MG TAB PO SCH (08:21)
[2023-02-21] MEDS: Pantoprazole 40 MG VIAL IVP SCH (08:21)
[2023-02-21] MEDS: Aspirin 81 mg Enteric Coated Tablet PO SCH (08:21)
[2023-02-21] MEDS: Cyanocobalamin (Vitamin B-12) 1,000 MCG TAB PO SCH (08:21)
[2023-02-21] MEDS: Heparin 5,000 UNITS/ML VIAL SC SCH ×3 (08:22→21:00)
[2023-02-21] MEDS: Atorvastatin Calcium 40 MG TAB PO SCH (21:12)
[2023-02-22] MEDS: Vancomycin HCl 125 MG/5 ML (BATCHED) UDCUP PO SCH ×5 (01:00→23:33)
[2023-02-22] MEDS: Hydrocortisone Sod Succ/PF 100 mg/2 ml Vial IVP SCH ×3 (04:09→20:58)
[2023-02-22] MEDS: Levothyroxine Sodium 50 MCG TAB PO SCH (05:34)
[2023-02-22] MEDS: metroNIDAZOLE 500 MG in Premix Bag 1 BAG IVPB SCH ×3 (05:34→22:29)
[2023-02-22] MEDS: Aspirin 81 mg Enteric Coated Tablet PO SCH (09:23)
[2023-02-22] MEDS: Cyanocobalamin (Vitamin B-12) 1,000 MCG TAB PO SCH (09:23)
[2023-02-22] MEDS: Heparin 5,000 UNITS/ML VIAL SC SCH ×3 (09:23→20:55)
[2023-02-22] MEDS: Folic Acid 1 MG TAB PO SCH (09:23)
[2023-02-22] MEDS: Pantoprazole 40 MG VIAL IVP SCH (09:23)
[2023-02-22] MEDS: Carvedilol 6.25 MG TAB PO SCH (16:36)
[2023-02-22] MEDS: Atorvastatin Calcium 40 MG TAB PO SCH (20:54)
[2023-02-23 05:55] LABS: Hematocrit 23.1 % (34.9-44.5); Hemoglobin 7.8 g/dL (12.0-15.5); Mean Corpuscular HGB CONC 33.8 g/dL (32.0-36.0); Mean Corpuscular Volume 94.7 fl (81.6-98.3); Mean Platelet Volume 13.4 fl (7.4-10.4); Platelet Count 107 10x3/uL (150-450); RBC Distribution Width 18.8 % (11.5-14.5); Red Blood Cell (RBC) Count 2.44 10x6/uL (3.90-5.03); White Blood Cell (WBC) Count 6.1 10x3/uL (3.5-10.5)
[2023-02-23 05:59] LABS: MDiff Complete? YES
[2023-02-23] MEDS: metroNIDAZOLE 500 MG in Premix Bag 1 BAG IVPB SCH ×3 (06:13→21:46)
[2023-02-23] MEDS: Levothyroxine Sodium 50 MCG TAB PO SCH (06:13)
[2023-02-23] MEDS: Vancomycin HCl 125 MG/5 ML (BATCHED) UDCUP PO SCH ×3 (06:13→18:25)
[2023-02-23 06:16] LABS: Anion Gap 17 mmol/L (10-20); BUN (Urea Nitrogen) 42 mg/dL (9.8-20.1); Calc. Creatinine Clearance 110 mL/min (70-130); Calcium 7.3 mg/dL (7.8-10.44); Carbon Dioxide 17 mmol/L (23-31); Chloride 113 mmol/L (98-107); Estimated GFR 55; Glucose 86 mg/dL (83-110); Potassium 3.2 mmol/L (3.5-5.1); Sodium 144 mmol/L (136-145)
[2023-02-23 06:22] LABS: Platelet Adequacy Comment Appears Decreased
[2023-02-23 06:23] LABS: RBC Morph Comment Within Normal Limits
[2023-02-23 06:24] LABS: Band 11 % (5-11); Lymphocytes 21 % (21-51); Metamyelocyte 2 % (0-0); Monocytes 19 % (0-10); Neutrophil 47 % (42-75)
[2023-02-23] MEDS ORDERED: Potassium Chloride 20 MEQ TAB PO SCH (06:45)
[2023-02-23] MEDS: Furosemide 40 MG TAB PO SCH (09:09)
[2023-02-23] MEDS: Cyanocobalamin (Vitamin B-12) 1,000 MCG TAB PO SCH (09:11)
[2023-02-23] MEDS: Hydrocortisone Sod Succ/PF 100 mg/2 ml Vial IVP SCH ×2 (09:11→21:51)
[2023-02-23] MEDS: Folic Acid 1 MG TAB PO SCH (09:11)
[2023-02-23] MEDS: Carvedilol 6.25 MG TAB PO SCH ×2 (09:11→16:26)
[2023-02-23] MEDS: Heparin 5,000 UNITS/ML VIAL SC SCH ×3 (09:11→21:51)
[2023-02-23] MEDS: Aspirin 81 mg Enteric Coated Tablet PO SCH (09:11)
[2023-02-23] MEDS: Loperamide HCl 2 MG CAP PO SCH ×3 (09:12→21:47)
[2023-02-23] MEDS: Pantoprazole 40 MG VIAL IVP SCH (09:12)
[2023-02-23] MEDS: Atorvastatin Calcium 40 MG TAB PO SCH (21:47)
[2023-02-24] MEDS: Vancomycin HCl 125 MG/5 ML (BATCHED) UDCUP PO SCH ×4 (00:08→19:03)
[2023-02-24 05:16] LABS: Anion Gap 16 mmol/L (10-20); BUN (Urea Nitrogen) 38 mg/dL (9.8-20.1); Calc. Creatinine Clearance 123 mL/min (70-130); Calcium 7.2 mg/dL (7.8-10.44); Carbon Dioxide 18 mmol/L (23-31); Chloride 113 mmol/L (98-107); Estimated GFR 63; Glucose 87 mg/dL (83-110); Potassium 3.4 mmol/L (3.5-5.1); Sodium 144 mmol/L (136-145)
[2023-02-24] MEDS: Levothyroxine Sodium 50 MCG TAB PO SCH (05:55)
[2023-02-24] MEDS: metroNIDAZOLE 500 MG in Premix Bag 1 BAG IVPB SCH ×3 (05:55→22:44)
[2023-02-24] MEDS ORDERED: Potassium Chloride 20 MEQ TAB PO SCH (06:30)
[2023-02-24] MEDS: Furosemide 40 MG TAB PO SCH (06:54)
[2023-02-24] MEDS: Hydrocortisone Sod Succ/PF 100 mg/2 ml Vial IVP SCH (10:15)
[2023-02-24] MEDS: Pantoprazole 40 MG VIAL IVP SCH (10:15)
[2023-02-24] MEDS: Cyanocobalamin (Vitamin B-12) 1,000 MCG TAB PO SCH (10:28)
[2023-02-24] MEDS: Folic Acid 1 MG TAB PO SCH (10:28)
[2023-02-24] MEDS: Carvedilol 6.25 MG TAB PO SCH ×2 (10:28→19:03)
[2023-02-24] MEDS: Heparin 5,000 UNITS/ML VIAL SC SCH ×3 (10:28→21:24)
[2023-02-24] MEDS: Aspirin 81 mg Enteric Coated Tablet PO SCH (10:28)
[2023-02-24] MEDS: Loperamide HCl 2 MG CAP PO SCH ×3 (10:29→22:44)
[2023-02-24] MEDS: Atorvastatin Calcium 40 MG TAB PO SCH (21:24)
[2023-02-25] MEDS: Vancomycin HCl 125 MG/5 ML (BATCHED) UDCUP PO SCH ×5 (00:37→23:37)
[2023-02-25] MEDS: metroNIDAZOLE 500 MG in Premix Bag 1 BAG IVPB SCH ×3 (06:48→21:08)
[2023-02-25] MEDS: Levothyroxine Sodium 50 MCG TAB PO SCH (06:49)
[2023-02-25] MEDS ORDERED: Hydrocortisone Sod Succ/PF 100 mg/2 ml Vial IVP SCH (09:00)
[2023-02-25] MEDS: Carvedilol 6.25 MG TAB PO SCH ×2 (09:48→16:40)
[2023-02-25] MEDS: Acetaminophen 325 MG TAB PO PRN (09:48)
[2023-02-25] MEDS: Folic Acid 1 MG TAB PO SCH (09:49)
[2023-02-25] MEDS: Cyanocobalamin (Vitamin B-12) 1,000 MCG TAB PO SCH (09:49)
[2023-02-25] MEDS: Loperamide HCl 2 MG CAP PO SCH (09:49)
[2023-02-25] MEDS: Famotidine 20 MG TAB PO SCH (09:49)
[2023-02-25] MEDS: Aspirin 81 mg Enteric Coated Tablet PO SCH (09:49)
[2023-02-25] MEDS: Furosemide 40 MG TAB PO SCH (09:49)
[2023-02-25 10:51] VITALS: BMI 56.9
[2023-02-25] MEDS: Heparin 5,000 UNITS/ML VIAL SC SCH ×3 (11:37→20:33)
[2023-02-25] MEDS: Atorvastatin Calcium 40 MG TAB PO SCH (20:33)
[2023-02-26 05:32] LABS: Hematocrit 22.3 % (34.9-44.5); Hemoglobin 7.1 g/dL (12.0-15.5); MDiff Complete? YES; Mean Corpuscular HGB CONC 31.8 g/dL (32.0-36.0); Mean Corpuscular Hemoglobin 31.8 pg (27.0-33.0); Mean Platelet Volume 12.4 fl (7.4-10.4); Platelet Count 177 10x3/uL (150-450); Red Blood Cell (RBC) Count 2.23 10x6/uL (3.90-5.03); White Blood Cell (WBC) Count 6.3 10x3/uL (3.5-10.5)
[2023-02-26 05:42] LABS: Anion Gap 15 mmol/L (10-20); BUN (Urea Nitrogen) 31 mg/dL (9.8-20.1); Calc. Creatinine Clearance 150 mL/min (70-130); Carbon Dioxide 19 mmol/L (23-31); Chloride 115 mmol/L (98-107); Estimated GFR 81; Glucose 75 mg/dL (83-110); Potassium 3.4 mmol/L (3.5-5.1); Sodium 146 mmol/L (136-145)
[2023-02-26 05:47] LABS: Calcium 6.8 mg/dL (7.8-10.44)
[2023-02-26 06:24] LABS: Eosinophils 1 % (0-10); Lymphocytes 32 % (21-51); Monocytes 10 % (0-10); Neutrophil 54 % (42-75); Promyelocytes 3 % (0-0)
[2023-02-26] MEDS: Vancomycin HCl 125 MG/5 ML (BATCHED) UDCUP PO SCH ×4 (06:24→23:15)
[2023-02-26] MEDS: Levothyroxine Sodium 50 MCG TAB PO SCH (06:24)
[2023-02-26] MEDS: metroNIDAZOLE 500 MG in Premix Bag 1 BAG IVPB SCH (06:24)
[2023-02-26 06:28] LABS: Anisocytosis SLIGHT = 6-15 cells (100X) (0-5/hpf); Hypochromia SLIGHT = 6-15 cells (100X) (0-5/hpf); Macrocytosis SLIGHT = 6-15 cells (100X) (0-5/hpf); Microcytosis SLIGHT = 6-15 cells (100X) (0-5/hpf); Stomatocytes SLIGHT = 2-5 cells (100X) (0-1/hpf); Target Cells SLIGHT = 2-5 cells (100X) (0-1/hpf)
[2023-02-26 06:30] LABS: Platelet Adequacy Comment Appears Adequate
[2023-02-26 07:49] LABS: ALT (SGPT) 10 U/L (8-55); AST (SGOT) 29 U/L (5-34); Albumin 2.1 g/dL (3.4-4.8); Alkaline Phosphatase 421 U/L (40-110); Bilirubin, Direct 0.4 mg/dL (0.1-0.3); Bilirubin, Total 0.7 mg/dL (0.2-1.2); Protein, Total 5.7 g/dL (5.8-8.1)
[2023-02-26] MEDS ORDERED: Potassium Chloride 20 MEQ TAB PO SCH (08:00)
[2023-02-26] MEDS: Aspirin 81 mg Enteric Coated Tablet PO SCH (09:08)
[2023-02-26] MEDS: Carvedilol 6.25 MG TAB PO SCH ×2 (09:08→17:17)
[2023-02-26] MEDS: Furosemide 40 MG TAB PO SCH (09:08)
[2023-02-26] MEDS: Cyanocobalamin (Vitamin B-12) 1,000 MCG TAB PO SCH (09:08)
[2023-02-26] MEDS: Famotidine 20 MG TAB PO SCH (09:08)
[2023-02-26] MEDS: Heparin 5,000 UNITS/ML VIAL SC SCH ×3 (09:09→21:12)
[2023-02-26] MEDS: Folic Acid 1 MG TAB PO SCH (09:09)
[2023-02-26] MEDS: Acetaminophen 325 MG TAB PO PRN (09:09)
[2023-02-26] MEDS: metroNIDAZOLE 500 MG TAB PO SCH ×3 (13:16→21:10)
[2023-02-26] MEDS: Atorvastatin Calcium 40 MG TAB PO SCH (21:10)
[2023-02-27 04:47] LABS: Hematocrit 23.8 % (34.9-44.5); Hemoglobin 7.6 g/dL (12.0-15.5); Mean Corpuscular HGB CONC 31.9 g/dL (32.0-36.0); Mean Corpuscular Hemoglobin 32.1 pg (27.0-33.0); Mean Corpuscular Volume 100.4 fl (81.6-98.3); Mean Platelet Volume 12.3 fl (7.4-10.4); Platelet Count 225 10x3/uL (150-450); RBC Distribution Width 19.2 % (11.5-14.5); Red Blood Cell (RBC) Count 2.37 10x6/uL (3.90-5.03); White Blood Cell (WBC) Count 5.5 10x3/uL (3.5-10.5)
[2023-02-27 04:55] LABS: Anion Gap 15 mmol/L (10-20); BUN (Urea Nitrogen) 26 mg/dL (9.8-20.1); Calc. Creatinine Clearance 160 mL/min (70-130); Carbon Dioxide 17 mmol/L (23-31); Chloride 115 mmol/L (98-107); Estimated GFR 88; Glucose 77 mg/dL (83-110); Magnesium 1.4 mg/dL (1.6-2.6); Phosphorus 3.2 mg/dL (2.3-4.7); Potassium 3.7 mmol/L (3.5-5.1); Sodium 143 mmol/L (136-145)
[2023-02-27 05:03] LABS: Calcium 6.9 mg/dL (7.8-10.44)
[2023-02-27 05:35] LABS: MDiff Complete? YES
[2023-02-27 05:55] LABS: Band 7 % (5-11); Lymphocytes 29 % (21-51); Monocytes 14 % (0-10); Neutrophil 50 % (42-75); Nucleated RBC (Manual Ct) 1 % (0)
[2023-02-27 05:56] LABS: Anisocytosis SLIGHT = 6-15 cells (100X) (0-5/hpf); Macrocytosis SLIGHT = 6-15 cells (100X) (0-5/hpf); Microcytosis SLIGHT = 6-15 cells (100X) (0-5/hpf)
[2023-02-27 05:57] LABS: Hypochromia MODERATE=16-30 cells (100X) (0-5/hpf); Large Platelets SLIGHT (None Seen); Platelet Adequacy Comment Appears Adequate; Polychromasia SLIGHT = 2-3 cells (100X) (0-2/hpf)
[2023-02-27] MEDS: Levothyroxine Sodium 50 MCG TAB PO SCH (06:03)
[2023-02-27] MEDS: Vancomycin HCl 125 MG/5 ML (BATCHED) UDCUP PO SCH ×4 (06:03→22:03)
[2023-02-27] MEDS: Magnesium 2 GM/50 ML(in water) 2 GM in Premix Bag 1 BAG IVPB SCH ×4 (11:02→14:20)
[2023-02-27] MEDS: Carvedilol 6.25 MG TAB PO SCH ×2 (11:02→16:44)
[2023-02-27] MEDS: Folic Acid 1 MG TAB PO SCH (11:02)
[2023-02-27] MEDS: metroNIDAZOLE 500 MG TAB PO SCH ×3 (11:02→21:14)
[2023-02-27] MEDS: Cyanocobalamin (Vitamin B-12) 1,000 MCG TAB PO SCH (11:02)
[2023-02-27] MEDS: Aspirin 81 mg Enteric Coated Tablet PO SCH (11:03)
[2023-02-27] MEDS: Famotidine 20 MG TAB PO SCH (11:03)
[2023-02-27] MEDS: Heparin 5,000 UNITS/ML VIAL SC SCH ×3 (11:04→21:14)
[2023-02-27] MEDS: Furosemide 40 MG TAB PO SCH (11:38)
[2023-02-27] MEDS: Atorvastatin Calcium 40 MG TAB PO SCH (21:14)
[2023-02-28 04:41] LABS: #Monocytes 0.5 10x3/uL (0.0-1.1); #Neutrophils 2.1 10x3/uL (1.5-8.4); %Basophils 0.2 % (0.0-2.0); %Eosinophils 0.2 % (0.0-6.0); %Lymphocytes 34.6 % (18.0-47.0); %Neutrophils 48.9 % (40.0-75.0); Hematocrit 23.8 % (34.9-44.5); Hemoglobin 7.6 g/dL (12.0-15.5); Mean Corpuscular HGB CONC 31.9 g/dL (32.0-36.0); Mean Corpuscular Hemoglobin 32.5 pg (27.0-33.0); Mean Corpuscular Volume 101.7 fl (81.6-98.3); Mean Platelet Volume 12.2 fl (7.4-10.4); Platelet Count 240 10x3/uL (150-450); Red Blood Cell (RBC) Count 2.34 10x6/uL (3.90-5.03); White Blood Cell (WBC) Count 4.3 10x3/uL (3.5-10.5)
[2023-02-28 04:54] LABS: Anion Gap 14 mmol/L (10-20); BUN (Urea Nitrogen) 21 mg/dL (9.8-20.1); Calc. Creatinine Clearance 159 mL/min (70-130); Calcium 7.1 mg/dL (7.8-10.44); Carbon Dioxide 20 mmol/L (23-31); Chloride 113 mmol/L (98-107); Estimated GFR 91; Glucose 75 mg/dL (83-110); Magnesium 1.9 mg/dL (1.6-2.6); Sodium 143 mmol/L (136-145)
[2023-02-28] MEDS ORDERED: Magnesium 2 GM/50 ML(in water) 2 GM in Premix Bag 1 BAG IVPB SCH (05:15)
[2023-02-28] MEDS: Levothyroxine Sodium 50 MCG TAB PO SCH (07:44)
[2023-02-28] MEDS: Vancomycin HCl 125 MG/5 ML (BATCHED) UDCUP PO SCH ×4 (07:44→23:45)
[2023-02-28 07:47] LABS: ALT (SGPT) 8 U/L (8-55); AST (SGOT) 21 U/L (5-34); Albumin 2.1 g/dL (3.4-4.8); Alkaline Phosphatase 348 U/L (40-110); Bilirubin, Direct 0.4 mg/dL (0.1-0.3); Bilirubin, Total 0.7 mg/dL (0.2-1.2); Protein, Total 6.1 g/dL (5.8-8.1)
[2023-02-28] MEDS: Heparin 5,000 UNITS/ML VIAL SC SCH ×3 (09:08→21:51)
[2023-02-28] MEDS: Carvedilol 6.25 MG TAB PO SCH ×2 (09:16→17:31)
[2023-02-28] MEDS: Folic Acid 1 MG TAB PO SCH (09:16)
[2023-02-28] MEDS: Furosemide 40 MG TAB PO SCH (09:17)
[2023-02-28] MEDS: Famotidine 20 MG TAB PO SCH ×2 (09:17→21:52)
[2023-02-28] MEDS: Cyanocobalamin (Vitamin B-12) 1,000 MCG TAB PO SCH (09:17)
[2023-02-28] MEDS: metroNIDAZOLE 500 MG TAB PO SCH ×3 (09:17→21:51)
[2023-02-28] MEDS: Aspirin 81 mg Enteric Coated Tablet PO SCH (09:17)
[2023-02-28] MEDS: Atorvastatin Calcium 40 MG TAB PO SCH (22:13)
[2023-03-01 04:54] LABS: Hematocrit 24.2 % (34.9-44.5); Hemoglobin 7.8 g/dL (12.0-15.5); Mean Corpuscular HGB CONC 32.2 g/dL (32.0-36.0); Mean Corpuscular Hemoglobin 31.8 pg (27.0-33.0); Mean Corpuscular Volume 98.8 fl (81.6-98.3); Mean Platelet Volume 12.4 fl (7.4-10.4); Platelet Count 216 10x3/uL (150-450); Red Blood Cell (RBC) Count 2.45 10x6/uL (3.90-5.03)
[2023-03-01 05:09] LABS: ALT (SGPT) 9 U/L (8-55); AST (SGOT) 22 U/L (5-34); Alkaline Phosphatase 319 U/L (40-110); Anion Gap 17 mmol/L (10-20); BUN (Urea Nitrogen) 19 mg/dL (9.8-20.1); Bilirubin, Direct 0.3 mg/dL (0.1-0.3); Bilirubin, Total 0.7 mg/dL (0.2-1.2); Calc. Creatinine Clearance 174 mL/min (70-130); Carbon Dioxide 16 mmol/L (23-31); Chloride 112 mmol/L (98-107); Estimated GFR 93; Glucose 78 mg/dL (83-110); Magnesium 1.7 mg/dL (1.6-2.6); Potassium 3.7 mmol/L (3.5-5.1); Protein, Total 5.8 g/dL (5.8-8.1); Sodium 141 mmol/L (136-145)
[2023-03-01] MEDS ORDERED: Magnesium 2 GM/50 ML(in water) 2 GM in Premix Bag 1 BAG IVPB SCH ×2 (05:15→08:30)
[2023-03-01 05:19] LABS: Calcium 6.9 mg/dL (7.8-10.44)
[2023-03-01 05:27] LABS: MDiff Complete? YES
[2023-03-01] MEDS: Vancomycin HCl 125 MG/5 ML (BATCHED) UDCUP PO SCH (05:34)
[2023-03-01] MEDS: Levothyroxine Sodium 50 MCG TAB PO SCH (05:34)
[2023-03-01 06:35] LABS: Band 11 % (5-11); Lymphocytes 31 % (21-51); Monocytes 12 % (0-10); Neutrophil 45 % (42-75); Reactive Lymphocytes 1 % (0-10)
[2023-03-01 06:44] LABS: Hypochromia SLIGHT = 6-15 cells (100X) (0-5/hpf)
[2023-03-01 06:45] LABS: Platelet Adequacy Comment Appears Adequate
[2023-03-01] MEDS ORDERED: Calcium Gluconate 4.6 MEQ in Sodium Chloride 0.9% 100 ML IVPB SCH ×2 (07:45→08:30)
[2023-03-01] MEDS ORDERED: Potassium Chloride 20 MEQ TAB PO SCH (08:00)
[2023-03-01] MEDS: Carvedilol 6.25 MG TAB PO SCH (08:01)
[2023-03-01] MEDS ORDERED: Calcium Carbonate 500 MG ChewTAB PO SCH (09:00)
[2023-03-01] MEDS: Heparin 5,000 UNITS/ML VIAL SC SCH (09:00)
[2023-03-01] MEDS: Aspirin 81 mg Enteric Coated Tablet PO SCH (09:01)
[2023-03-01] MEDS: Cyanocobalamin (Vitamin B-12) 1,000 MCG TAB PO SCH (09:02)
[2023-03-01] MEDS: Folic Acid 1 MG TAB PO SCH (09:02)
[2023-03-01] MEDS: Famotidine 20 MG TAB PO SCH (09:02)
[2023-03-01] MEDS: metroNIDAZOLE 500 MG TAB PO SCH (09:09)
[2023-03-01 12:36] VITALS: BP 99/66; TEMP 97.7
== END 2023-03-01 13:50 | DRG 64 ==
LOC: CSHERS 14:39 → CSHIMCU 21:51 → CSHTELE 02-22 20:13
PROVIDERS: ADMIT Internal Medicine; ATTEND Family Medicine
PROC: 0T9B70Z Drainage of Bladder with Drainage Device, Via Natural or Artificial Opening (ICD-10-PCS; principal; 2023-02-15)
PROC: 02HV33Z Insertion of Infusion Device into Superior Vena Cava, Percutaneous Approach (ICD-10-PCS; 2023-02-15)
PROC: 3E04329 Introduction of Other Anti-infective into Central Vein, Percutaneous Approach (ICD-10-PCS; 2023-02-15)
PROC: 4A043R1 Measurement of Venous Saturation, Peripheral, Percutaneous Approach (ICD-10-PCS; 2023-02-15)
PROC: 3E043XZ Introduction of Vasopressor into Central Vein, Percutaneous Approach (ICD-10-PCS; 2023-02-15)
PROC: 30243J1 Transfusion of Nonautologous Serum Albumin into Central Vein, Percutaneous Approach (ICD-10-PCS; 2023-02-16)
PROC: 30233N1 Transfusion of Nonautologous Red Blood Cells into Peripheral Vein, Percutaneous Approach (ICD-10-PCS; 2023-02-18)
PROC: 4A033R1 Measurement of Arterial Saturation, Peripheral, Percutaneous Approach (ICD-10-PCS; 2023-02-18)
DX: I63.9 Cerebral infarction, unspecified (principal); A41.89 Other specified sepsis; G93.41 Metabolic encephalopathy; R65.21 Severe sepsis with septic shock; I21.4 Non-ST elevation (NSTEMI) myocardial infarction; A04.72 Enterocolitis due to Clostridium difficile, not specified as recurrent; B37.89 Other sites of candidiasis; Z68.43 Body mass index [BMI] 50.0-59.9, adult; N17.9 Acute kidney failure, unspecified; E87.20 Acidosis, unspecified; I47.1 Supraventricular tachycardia; N39.0 Urinary tract infection, site not specified; I50.32 Chronic diastolic (congestive) heart failure; R47.01 Aphasia; I11.0 Hypertensive heart disease with heart failure; E83.51 Hypocalcemia; R47.1 Dysarthria and anarthria; F44.4 Conversion disorder with motor symptom or deficit; L89.029 Pressure ulcer of left elbow, unspecified stage; L89.109 Pressure ulcer of unspecified part of back, unspecified stage; I25.10 Atherosclerotic heart disease of native coronary artery without angina pectoris; E03.9 Hypothyroidism, unspecified; E78.5 Hyperlipidemia, unspecified; E83.42 Hypomagnesemia; D64.9 Anemia, unspecified; E86.1 Hypovolemia; E87.6 Hypokalemia; R29.6 Repeated falls; E66.01 Morbid (severe) obesity due to excess calories; M16.0 Bilateral primary osteoarthritis of hip; M17.12 Unilateral primary osteoarthritis, left knee; Z79.82 Long term (current) use of aspirin; Z79.899 Other long term (current) drug therapy; Z98.51 Tubal ligation status; Z79.01 Long term (current) use of anticoagulants; Z79.2 Long term (current) use of antibiotics
CPT/HCPCS: 36415; 36416; 36430; 36600; 51702; 70450; 70551; 71045; 74018; 74176; 80048; 80053; 80061; 80076; 80306; 81001; 82040; 82306; 82533; 82550; 82553; 82570; 82805; 83605; 83735; 83880; 83970; 84100; 84145; 84300; 84443; 84484; 84540; 85025; 85610; 85730; 86850; 86900; 86901; 87040; 87086; 87324; 87449; 87505; 93005; 93010; 93306; 94760; 94762; 96361; 96365; 96367; 96375; 97139; C9113; J0696; J1611; J1644; J1720; J3475; J3480; J3490; J7030; J7050; J7120; J7999; P9016; P9047; S0028

== ENCOUNTER 2023-03-22 05:03 | Inpatient (IN) | payer OTHER, MEDICAID ==
[2023-03-22 06:09] LABS: Bilirubin Neg (Negative); Blood, Urine 10 (Negative); Clarity Cloudy (Clear); Glucose, Urine (Dipstick) Normal (Negative); Ketone, Urine Negative (Negative); Leukocyte 100 (Negative); Nitrite Negative (Negative); Protein, Urine (Dipstick) Negative (Neg-Trace); Urobilinogen Normal mg/dL (Less than 2)
[2023-03-22 06:13] LABS: Hematocrit 32.2 % (34.9-44.5); Hemoglobin 9.7 g/dL (12.0-15.5); Mean Corpuscular HGB CONC 30.1 g/dL (32.0-36.0); Mean Corpuscular Hemoglobin 32.1 pg (27.0-33.0); Mean Corpuscular Volume 106.6 fl (81.6-98.3); Mean Platelet Volume 12.1 fl (7.4-10.4); Platelet Count 135 10x3/uL (150-450); RBC Distribution Width 18.6 % (11.5-14.5); Red Blood Cell (RBC) Count 3.02 10x6/uL (3.90-5.03); White Blood Cell (WBC) Count 1.8 10x3/uL (3.5-10.5)
[2023-03-22] MEDS ORDERED: Cefepime 2 GM VIAL ONE (06:21)
[2023-03-22] MEDS ORDERED: Vancomycin 1 GM VIAL ONE (06:21)
[2023-03-22 06:23] LABS: MDiff Complete? YES
[2023-03-22 06:26] LABS: CAUTI Indications for Culture Alt mental st,lethar; RBC/HPF 0-3 HPF (0-3)
[2023-03-22 06:27] LABS: Bacteria/HPF 4+ HPF (None Seen); Urine Culture Reflex No No
[2023-03-22 06:47] LABS: Large Platelets SLIGHT (None Seen)
[2023-03-22 06:48] LABS: Macrocytosis SLIGHT = 6-15 cells (100X) (0-5/hpf); Platelet Adequacy Comment Appears Decreased
[2023-03-22 06:51] LABS: Band 10 % (5-11); Eosinophils 3 % (0-10); Lymphocytes 32 % (21-51); Monocytes 1 % (0-10); Neutrophil 54 % (42-75)
[2023-03-22 06:53] LABS: ALT (SGPT) 25 U/L (8-55); AST (SGOT) 45 U/L (5-34); Albumin 2.5 g/dL (3.4-4.8); Alkaline Phosphatase 144 U/L (40-110); Anion Gap 17 mmol/L (10-20); BUN (Urea Nitrogen) 21 mg/dL (9.8-20.1); Bilirubin, Total 0.4 mg/dL (0.2-1.2); Calc. Creatinine Clearance 0 mL/min (70-130); Calcium 7.8 mg/dL (7.8-10.44); Carbon Dioxide 22 mmol/L (23-31); Chloride 112 mmol/L (98-107); Estimated GFR 69; Glucose 89 mg/dL (83-110); Potassium 4.7 mmol/L (3.5-5.1); Protein, Total 6.5 g/dL (5.8-8.1); Sodium 146 mmol/L (136-145)
[2023-03-22 06:59] LABS: Troponin I 0.056 ng/mL (< 0.028)
[2023-03-22] MEDS ORDERED: Ondansetron PF 4 MG/2 ML Vial IVP PRN (10:58)
[2023-03-22] MEDS ORDERED: Acetaminophen 325 MG TAB PO PRN (10:58)
[2023-03-22] MEDS ORDERED: Acetaminophen 650 MG Suppository PR PRN (10:58)
[2023-03-22] MEDS ORDERED: Iopamidol 370 76% 100 ML VIAL ONE (11:35)
[2023-03-22] MEDS ORDERED: Dextrose 5 %-0.45 % NaCl 1,000 ML IV SCH (11:45)
[2023-03-22 13:20] VITALS: BMI 49.5
[2023-03-22] MEDS ORDERED: metroNIDAZOLE 500 MG in Premix Bag 1 BAG IVPB SCH (14:00)
[2023-03-22] MEDS ORDERED: Sodium Chloride 0.45% 1,000 ML IV SCH (14:45)
[2023-03-22] MEDS ORDERED: NOREPINEPHRINE 8 MG/250 ML-D5W 250 ML IVPB SCH (14:45)
[2023-03-22 14:46] LABS: Troponin I 0.047 ng/mL (< 0.028)
[2023-03-22] MEDS: Dexamethasone 4 mg/ml Vial SLOW IVP SCH ×2 (15:58→21:04)
[2023-03-22] MEDS ORDERED: levETIRAcetam in NS 1,500 MG in Premix Bag 1 BAG IVPB STA (16:07)
[2023-03-22] MEDS ORDERED: levETIRAcetam 500 MG/5 ML VIAL SLOW IVP SCH ×2 (16:30)
[2023-03-22] MEDS ORDERED: Lorazepam 2 MG/ML VIAL SLOW IVP SCH (16:30)
[2023-03-22 16:51] LABS: Actual Bicarbonate (HCO3a) 25.2 mEq/L (22-28); Base Excess (BEa) -0.4 mEq/L (-2.0 to +3.0); CO2 Tension 45.5 mmHg (35.0-45.0); Calcium, Ionized (arterial) 0.98 mmol/L (1.12-1.30); Carboxyhemoglobin (COHb) 0.3 gm% (0.0-3.0); Hematocrit-ABG 32 % (36.0-47.0); O2 Tension (PaO2), arterial 134.9 mmHg (> 70.0); Potassium - ABG Lab 4.26 mmol/L (3.70-5.30); Puncture Site RBA; pH, Arterial 7.361 (7.35-7.45)
[2023-03-22 16:56] LABS: ALV-art Gradient 36.385 mmHg (0-20)
[2023-03-22] MEDS ORDERED: Carvedilol 6.25 MG TAB PO SCH (17:00)
[2023-03-22] MEDS ORDERED: Cefepime 1 GM in Sodium Chloride 0.9% 100 ML IVPB SCH (17:00)
[2023-03-22] MEDS ORDERED: Sodium Bicarbonate 150 MEQ in Dextrose 5% in Water 1,000 ML IV SCH (17:00)
[2023-03-22 17:03] LABS: Anion Gap 10 mmol/L (10-20); BUN (Urea Nitrogen) 19 mg/dL (9.8-20.1); Calc. Creatinine Clearance 134 mL/min (70-130); Carbon Dioxide 26 mmol/L (23-31); Chloride 113 mmol/L (98-107); Estimated GFR 75; Glucose 79 mg/dL (83-110); Potassium 4.4 mmol/L (3.5-5.1); Sodium 145 mmol/L (136-145)
[2023-03-22 17:05] LABS: D-Dimer Test 0.79 mg/L FEU (0.19-0.50); INR-International Normal Ratio 1.1; PTT 36.3 sec (22.0-33.0); Prothrombin Time 11.9 sec (9.5-12.1)
[2023-03-22] MEDS ORDERED: Vancomycin HCl 750 MG in Sodium Chloride 0.9% 250 ML 250 ML IVPB SCH (18:00)
[2023-03-22] MEDS ORDERED: Senokot S 8.6-50 MG TAB PO SCH (21:00)
[2023-03-22 22:42] LABS: Actual Bicarbonate (HCO3a) 22.4 mEq/L (22-28); Base Excess (BEa) -2.6 mEq/L (-2.0 to +3.0); Calcium, Ionized (arterial) 0.96 mmol/L (1.12-1.30); Carboxyhemoglobin (COHb) 0.3 gm% (0.0-3.0); Hematocrit-ABG 26 % (36.0-47.0); Hemoglobin (Hb) 8.9 g/dL (12.0-16.0); O2 Tension (PaO2), arterial 186.9 mmHg (> 70.0); Potassium - ABG Lab 4.54 mmol/L (3.70-5.30); Puncture Site RRA; pH, Arterial 7.367 (7.35-7.45)
[2023-03-22] MEDS ORDERED: Azithromycin 500 MG in Sodium Chloride 0.9% 250 ML 250 ML IVPB SCH (23:00)
[2023-03-23] MEDS ORDERED: Levothyroxine Sodium 50 MCG TAB PO SCH (06:00)
[2023-03-23] MEDS ORDERED: levETIRAcetam 500 MG/5 ML VIAL SLOW IVP SCH (09:00)
[2023-03-23] MEDS ORDERED: Aspirin 81 mg Enteric Coated Tablet PO SCH (09:00)
== END 2023-03-23 01:45 | disposition short-term general hospital (02) | DRG 82 ==
LOC: CSHERS 05:03 → CSHICU 10:58
PROVIDERS: ADMIT Internal Medicine; ATTEND Internal Medicine
PROC: 02HV33Z Insertion of Infusion Device into Superior Vena Cava, Percutaneous Approach (ICD-10-PCS; principal; 2023-03-22)
PROC: B548ZZA Ultrasonography of Superior Vena Cava, Guidance (ICD-10-PCS; 2023-03-22)
PROC: 3E03329 Introduction of Other Anti-infective into Peripheral Vein, Percutaneous Approach (ICD-10-PCS; 2023-03-22)
PROC: 4A133R1 Monitoring of Arterial Saturation, Peripheral, Percutaneous Approach (ICD-10-PCS; 2023-03-22)
DX: S06.6XAA Traumatic subarachnoid hemorrhage with loss of consciousness status unknown, initial encounter (principal); A41.9 Sepsis, unspecified organism; G93.41 Metabolic encephalopathy; R65.21 Severe sepsis with septic shock; J18.9 Pneumonia, unspecified organism; Z68.42 Body mass index [BMI] 45.0-49.9, adult; N30.00 Acute cystitis without hematuria; W19.XXXA Unspecified fall, initial encounter; I10 Essential (primary) hypertension; M19.90 Unspecified osteoarthritis, unspecified site; E03.9 Hypothyroidism, unspecified; E66.01 Morbid (severe) obesity due to excess calories; E78.5 Hyperlipidemia, unspecified; T68.XXXA Hypothermia, initial encounter; R56.9 Unspecified convulsions; D64.9 Anemia, unspecified; D69.6 Thrombocytopenia, unspecified; E87.8 Other disorders of electrolyte and fluid balance, not elsewhere classified; Y92.122 Bedroom in nursing home as the place of occurrence of the external cause; Z98.51 Tubal ligation status; Z86.73 Personal history of transient ischemic attack (TIA), and cerebral infarction without residual deficits; Z79.82 Long term (current) use of aspirin; Z79.899 Other long term (current) drug therapy
CPT/HCPCS: 36415; 36600; 70450; 70496; 70498; 70551; 71045; 71250; 72125; 74177; 80053; 81001; 82140; 82533; 82550; 82805; 83605; 83880; 84145; 84443; 84484; 85025; 85049; 85060; 85300; 85362; 85379; 85384; 85610; 85730; 87040; 87077; 87086; 87186; 93005; 94760; 94762; J0456; J0692; J1100; J1953; J3370; J3490; J7042; J7050; J7070; Q9967